=== PATIENT | female | born 1945 | race Hispanic/Latino ===

== ENCOUNTER 2018-03-18 13:53 | Inpatient (IN) | payer BC ==
[2018-03-18 14:17] VITALS: BMI 21.6
[2018-03-18 14:55] LABS: BASO # 0.1 K/uL (0.0-0.2); BASO % 0.7 % (0.0-2.0); EOS % 0.4 % (0.0-4.0); HEMOGLOBIN 15.4 g/dL (11.0-16.0); LYMPH # 2.9 K/uL (1.0-4.3); LYMPH % 33.1 % (20.0-40.0); MEAN CELL VOLUME 89.2 fL (81.0-99.0); MEAN CORPUSCULAR HGB CONC 33.7 g/dL (33.0-37.0); MEAN PLATELET VOLUME 7.3 fL (7.2-11.7); MONO # 1.2 K/uL (0.0-0.8); NEUT # 4.5 K/uL (1.8-7.0); NEUT % 51.8 % (50.0-75.0); NRBC % 0.1 % (0.0-2.0); RBC 5.12 Mil/uL (3.80-5.20); RED CELL DISTRIBUTION WIDTH 13.7 % (11.5-14.5); WHITE BLOOD COUNT 8.8 K/uL (4.8-10.8)
[2018-03-18] MEDS ORDERED: Albuterol-Ipratrop 3 mg / 0.5 (3 ml) UD INH STA (14:57)
[2018-03-18 15:10] LABS: ALB/GLOB RATIO 1.2 (1.0-2.1); ALBUMIN 4.4 g/dL (3.5-5.0); ALT/SGPT 29 U/L (9-52); AST/SGOT 27 U/L (14-36); BLOOD UREA NITROGEN 16 mg/dL (7-17); CALCIUM 9.3 mg/dl (8.6-10.4); GFR NON-AFRICAN AMERICAN > 60
[2018-03-18] MEDS ORDERED: Albuterol-Ipratrop 3 mg / 0.5 (3 ml) UD ONE (15:21)
[2018-03-18] MEDS ORDERED: Magnesium Sulfate 1 gm in D5W 1 GM/100 ML BAG IVPB ONE ×2 (15:21→16:28)
[2018-03-18 15:22] LABS: B-TYPE NATRIURETIC PEPTIDE 268 pg/mL (0-900)
[2018-03-18] MEDS: Magnesium Sulfate 1 gm in D5W 1 GM/100 ML BAG IVPB SCH ×2 (15:37→16:36)
[2018-03-18] MEDS ORDERED: Albuterol 0.083% Inhal Sol (2.5 mg/3 mL) UD INH STA (16:23)
[2018-03-18] MEDS ORDERED: Iodixanol 320 mg/ml 150 ml Bottle IV ONE (17:01)
--- NOTE | 2018-03-18 17:56 | RAD ---
Chest x-ray single frontal view History: Shortness of breath. Comparison: 03/17/2018 Findings: Biapical pleural thickening with upper lobe granulomatous changes. Scattered nodular densities in both lung rose. Nodular densities at the lung bases may represent nipple shadows. Diffuse increased interstitial lung markings. Mild bilateral hilar prominence Status post median sternotomy. Degenerative changes in the spine and shoulders. Impression: Biapical pleural thickening with upper lobe granulomatous changes. Scattered nodular densities in both lung rose. Nodular densities at the lung bases may represent nipple shadows. Diffuse increased interstitial lung markings. Mild bilateral hilar prominence Status post median sternotomy.
--- NOTE | 2018-03-18 19:57 | C.PDOC ---
History Of Present Illness 73 y/o female presents to ED c/o gradually worsening shortness of breath over the last 3 days. Pt has history of smoking in the past. She is currently taking antibiotics (day 2) for cough. She admits to dry cough. Otherwise, denies fever , chest pain, or other complaints. Chief Complaint (Nursing): Shortness Of Breath History Per: Patient History/Exam Limitations: no limitations Past Medical History Reviewed: Historical Data, Nursing Documentation, Vital Signs Vital Signs: Last Vital Signs Temp 97.6 F 03/18/18 14:28 Pulse 88 03/18/18 20:30 Resp 20 03/18/18 20:30 BP 121/61 03/18/18 20:30 Pulse Ox 93 L 03/18/18 20:42 - Medical History PMH: Asthma, Bronchitis, COPD, Emphysema, HTN, Pneumonia Surgical History: CABG Family History: States: Unknown Family Hx - Social History Hx Alcohol Use: No Hx Substance Use: No - Immunization History Hx Tetanus Toxoid Vaccination: No Hx Influenza Vaccination: No Hx Pneumococcal Vaccination: No Review Of Systems Except As Marked, All Systems Reviewed And Found Negative. Constitutional: Negative for: Fever, Chills Cardiovascular: Negative for: Chest Pain, Palpitations Respiratory: Positive for: Cough, Shortness of Breath Gastrointestinal: Negative for: Nausea, Vomiting, Abdominal Pain Physical Exam - Physical Exam Appears: Non-toxic, Other (In mild distress) Skin: Normal Color, Warm, Dry Head: Atraumatic, Normacephalic Eye(s): bilateral: Normal Inspection Oral Mucosa: Moist Neck: Supple Cardiovascular: Rhythm Regular (tachycardic) Respiratory: No Accessory Muscle Use, No Rales, No Rhonchi, Wheezing (expiratory ), Other (fair air entry) Gastrointestinal/Abdominal: Soft, No Tenderness Extremity: Normal ROM, No Pedal Edema Neurological/Psych: Oriented x3, Normal Speech ED Course And Treatment - Laboratory Results Result Diagrams: 03/18/18 14:52 03/18/18 14:52 ECG: Interpreted By Me, Viewed By Me ECG Rhythm: Sinus Rhythm Interpretation Of ECG: Normal axis. PVCs. Rate From EC (bpm) O2 Sat by Pulse Oximetry: 93 (RA) Pulse Ox Interpretation: Normal Medical Decision Making Medical Decision Making: Plan: Blood work CXR EKG Angio chest CT Albuterol Magnesium sulfate Solu-Medrol Case discussed with Dr. Hall who agrees upon Tele-Obs admission. Disposition - Disposition Disposition Time: 19:00 Condition: FAIR - Clinical Impression Clinical Impression: COPD exacerbation - Scribe Statement The provider has reviewed the documentation as recorded by the Scribe KP All medical record entries made by the Scribe were at my direction and personally dictated by me. I have reviewed the chart and agree that the record accurately reflects my personal performance of the history, physical exam, medical decision making, and the department course for this patient. I have also personally directed, reviewed, and agree with the discharge instructions and disposition.
--- NOTE | 2018-03-18 21:55 | CP.PCM.CON ---
Past Patient History - Past Social History Smoking Status: Current Some Days Smoker - CARDIAC Hx Hypertension: Yes - PULMONARY Hx Asthma: Yes Hx Bronchitis: Yes Hx Chronic Obstructive Pulmonary Disease (COPD): Yes Hx Emphysema: Yes Hx Pneumonia: Yes - PSYCHIATRIC Hx Substance Use: No - SURGICAL HISTORY Hx Coronary Artery Bypass Graft: Yes - ANESTHESIA Hx Anesthesia: Yes Hx Anesthesia Reactions: No Hx Malignant Hyperthermia: No Meds Allergies/Adverse Reactions: Allergies Allergy/AdvReac Type Severity Reaction Status Date / Time moxifloxacin [From Avelox] Allergy Verified 03/18/18 14:17 Penicillins Allergy Verified 03/18/18 14:17 - Medications Medications: Current Medications Albuterol/Ipratropium (Duoneb 3 Mg/0.5 Mg (3 Ml) Ud) 3 ml INH RQ6 [facility] Amlodipine Besylate (Norvasc) 5 mg PO DAILY [facility] Enoxaparin Sodium (Lovenox) 40 mg SC DAILY [facility] Azithromycin 500 mg/ Sodium (Chloride) 250 mls @ 250 mls/hr IVPB DAILY [facility] PRN Reason: Protocol Methylprednisolone (Solu-Medrol) 60 mg IVP Q8 [facility] Rosuvastatin Calcium (Crestor) 5 mg PO HS [facility] Results - Vital Signs Recent Vital Signs: Last Vital Signs Temp 97.6 F 03/18/18 14:28 Pulse 88 03/18/18 20:30 Resp 20 03/18/18 20:30 BP 121/61 03/18/18 20:30 Pulse Ox 93 L 03/18/18 21:22 - Labs Result Diagrams: 03/18/18 14:52 03/18/18 14:52 Labs: Laboratory Results - last 24 hr 03/18/18 03/18/18 14:52 14:52 WBC 8.8 RBC 5.12 Hgb 15.4 Hct 45.7 MCV 89.2 MCH 30.0 MCHC 33.7 RDW 13.7 Plt Count 249 MPV 7.3 Neut % (Auto) 51.8 Lymph % (Auto) 33.1 [place] % (Auto) 14.0 H Eos % (Auto) 0.4 Baso % (Auto) 0.7 Neut # (Auto) 4.5 Lymph # (Auto) 2.9 [place] # (Auto) 1.2 H Eos # (Auto) 0.0 Baso # (Auto) 0.1 Sodium 137 Potassium 4.2 Chloride 94 L Carbon Dioxide 32 H Anion Gap 16 BUN 16 Creatinine 0.6 L Est GFR ( Amer) > 60 Est GFR (Non-Af Amer) > 60 Random Glucose 131 H Calcium 9.3 Total Bilirubin 0.4 AST 27 ALT 29 Alkaline Phosphatase 112 Troponin I < 0.0120 NT-Pro-B Natriuret Pep 268 Total Protein 8.0 Albumin 4.4 Globulin 3.6 Albumin/Globulin Ratio 1.2
[2018-03-18 22:25] LABS: ABG ALLEN TEST POS; ARTERIAL BLOOD GAS HCO3 26.1 mmol/L (21-28); ARTERIAL BLOOD GAS HEMOGLOBIN 14.1 g/dL (11.7-17.4); ARTERIAL BLOOD GAS O2 SAT 99.9 % (95-98); ARTERIAL BLOOD GAS PCO2 66 mm/Hg (35-45); ARTERIAL BLOOD GAS PH 7.27 (7.35-7.45); ARTERIAL BLOOD GAS PO2 126 mm/Hg (80-100); ARTERIAL BLOOD GAS TCO2 32.3 mmol/L (22-28)
[2018-03-19 07:09] LABS: SQUAMOUS EPITHIAL 5 /hpf (0-5); URINE BACTERIA RARE (<OCC); URINE BILIRUBIN NEGATIVE (NEGATIVE); URINE BLOOD NEGATIVE (NEGATIVE); URINE CLARITY Clear (Clear); URINE COLOR Yellow (YELLOW); URINE GLUCOSE (UA) NORMAL (Normal); URINE LEUKOCYTE ESTERASE NEG Leu/uL (Negative); URINE PROTEIN NEGATIVE (NEGATIVE); URINE UROBILINOGEN NORMAL mg/dL (0.2-1.0)
[2018-03-19] MEDS ORDERED: MethylPREDNISolone 40 mg Vial ONE (07:16)
[2018-03-19] MEDS: Albuterol-Ipratrop 3 mg / 0.5 (3 ml) UD INH SCH ×2 (09:00→19:41)
[2018-03-19] MEDS: Azithromycin 500 MG in Sodium Chloride 0.9% 250 ML IVPB SCH (11:40)
[2018-03-19] MEDS: Enoxaparin 40 mg Syringe SC SCH (11:43)
--- NOTE | 2018-03-19 12:47 | CT ---
CT chest pulmonary angiogram History: Shortness of breath. Comparison: X-ray dated 03/18/2018 Technique: Axial computed tomographic angiographic images of the chest were performed with intravenous contrast utilizing CT angiography protocol. Subsequently, sagittal coronal reformatted images as well as sagittal coronal MIPS reformatted images were obtained. This CT exam was performed using one or more of the following dose reduction techniques: Automated exposure control, adjustment of the mA and/or kV according to patient size, and/or use of iterative reconstruction technique. Findings: No evidence of acute pulmonary embolism. Atherosclerotic calcifications of the aorta, great vessels, and coronary arteries. Emphysematous lungs with mild bullous changes in the upper and lower lobes. 6 millimeter spiculated nodule in the posterior segment of the right upper lobe of the lung on series 4, image 35. Mild consolidative changes seen within the anterior right lower lobe on series 4, image 69 near the fissure. No pleural effusion. Heart size is within normal limits. Mediastinal clips. Small hiatal hernia. Sternal wires. Mild compression fractures of the T7 through T9 vertebral bodies. In addition, at the T7-8 level, there is a prominent central spur causing severe spinal canal stenosis. At the T8-9 level, there is a large 11 millimeter right paracentral spur/ calcified disc obliterating the spinal canal and compressing on the spinal cord. This would be better evaluated with MRI if clinically indicated. Few splenic granulomas. Calcified abdominal aorta and its branches. Accessory left renal artery. Focal calcification in the left breast. Correlation with mammography may be helpful if clinically indicated. Multiple small hypodensities in the liver, too small to adequately characterize. Punctate splenic calcification. Splenule. Impression: No gross acute pulmonary embolism. Centrilobular emphysema. 6 millimeter spiculated nodule in the right upper lobe of the lung. 3-6 month interval followup would be helpful for further evaluation if clinically indicated. At the T8-9 level, there is a 11 millimeter large right paracentral spur/calcified disc obliterating the spinal canal and compressing on the spinal cord. Correlation with MRI may be helpful if clinically indicated. These findings were preliminarily reported at 6:24 p.m. on 03/18/[address] Bk Guzman from [facility].
--- NOTE | 2018-03-19 12:48 | CP.PCM.HP ---
History of Present Illness - History of Present Illness History of Present Illness: 73 y/o lady with hx of cigarettes smoking, CAD, S/P GABG x 4, HTN, severe COPD. She presented in ER with progressive dyspnea, cough, general weakness, severe tachypnea. She was seen in my office few days before admission and she did not improve on the bronchodilator and anti bx meds. At the present time poorly respond to steroid rx iv. Still in mild distress, dyspnea, severe dyspnea on minimal exertion. Patent with respiratory acidosis. A CT scan reveled a suspicious 6 mm nodule. Patient still heavy smoker. Present on Admission - Present on Admission Any Indicators Present on Admission: No Review of Systems - Constitutional Constitutional: As Per HPI - EENT Eyes: As Per HPI - Cardiovascular Cardiovascular: Dyspnea, Dyspnea on Exertion, Palpitations - Respiratory Respiratory: Dyspnea, Dyspnea on Exertion, Wheezing - Gastrointestinal Gastrointestinal: As Per HPI - Musculoskeletal Musculoskeletal: As Per HPI - Neurological Neurological: As Per HPI - Psychiatric Psychiatric: As Per HPI - Endocrine Endocrine: As Per HPI Past Patient History - Past Social History Smoking Status: Current Some Days Smoker - CARDIAC Hx Hypertension: Yes - PULMONARY Hx Asthma: Yes Hx Bronchitis: Yes Hx Chronic Obstructive Pulmonary Disease (COPD): Yes Hx Emphysema: Yes Hx Pneumonia: Yes - PSYCHIATRIC Hx Substance Use: No - SURGICAL HISTORY Hx Coronary Artery Bypass Graft: Yes - ANESTHESIA Hx Anesthesia: Yes Hx Anesthesia Reactions: No Hx Malignant Hyperthermia: No Meds Allergies/Adverse Reactions: Allergies Allergy/AdvReac Type Severity Reaction Status Date / Time moxifloxacin [From Avelox] Allergy Verified 03/18/18 14:17 Penicillins Allergy Verified 03/18/18 14:17 Physical Exam - Constitutional Appears: In Acute Distress, Chronically Ill - Head Exam Head Exam: ATRAUMATIC, NORMAL INSPECTION, NORMOCEPHALIC - Eye Exam Eye Exam: Normal appearance - ENT Exam ENT Exam: Mucous Membranes Moist - Respiratory Exam Respiratory Exam: Decreased Breath Sounds Additional comments: poor inspiratory effort. - Cardiovascular Exam Cardiovascular Exam: REGULAR RHYTHM, +S1, +S2 - GI/Abdominal Exam GI & Abdominal Exam: Normal Bowel Sounds - Extremities Exam Extremities exam: Positive for: normal inspection - Neurological Exam Neurological exam: Alert, CN II-XII Intact, Oriented x3 - Psychiatric Exam Psychiatric exam: Normal Affect - Skin Skin Exam: Pallor Results - Vital Signs Recent Vital Signs: Last Vital Signs Temp 98.1 F 03/19/18 10:02 Pulse 87 03/19/18 10:02 Resp 20 03/19/18 10:02 BP 112/67 03/19/18 10:02 Pulse Ox 96 03/19/18 10:02 - Labs Result Diagrams: 03/18/18 14:52 03/18/18 14:52 Labs: Laboratory Results - last 24 hr 03/18/18 03/18/18 03/18/18 14:52 14:52 22:20 WBC 8.8 RBC 5.12 Hgb 15.4 Hct 45.7 MCV 89.2 MCH 30.0 MCHC 33.7 RDW 13.7 Plt Count 249 MPV 7.3 Neut % (Auto) 51.8 Lymph % (Auto) 33.1 [place] % (Auto) 14.0 H Eos % (Auto) 0.4 Baso % (Auto) 0.7 Neut # (Auto) 4.5 Lymph # (Auto) 2.9 [place] # (Auto) 1.2 H Eos # (Auto) 0.0 Baso # (Auto) 0.1 Puncture Site Rr pCO2 66 H pO2 126 H HCO3 26.1 ABG pH 7.27 L ABG Total CO2 32.3 H ABG O2 Saturation 99.9 H ABG Base Excess 1.5 ABG Hemoglobin 14.1 ABG Carboxyhemoglobin 1.9 H POC ABG HHb (Measured) 0.1 ABG Methemoglobin 1.3 [place] Test Pos Hgb O2 Saturation 96.7 Liter Flow 3.0 Sodium 137 Potassium 4.2 Chloride 94 L Carbon Dioxide 32 H Anion Gap 16 BUN 16 Creatinine 0.6 L Est GFR ( Amer) > 60 Est GFR (Non-Af Amer) > 60 Random Glucose 131 H Calcium 9.3 Total Bilirubin 0.4 AST 27 ALT 29 Alkaline Phosphatase 112 Troponin I < 0.0120 NT-Pro-B Natriuret Pep 268 Total Protein 8.0 Albumin 4.4 Globulin 3.6 Albumin/Globulin Ratio 1.2 Urine Color Urine Clarity Urine pH Ur Specific [place] Urine Protein Urine Glucose (UA) Urine Ketones Urine Blood Urine Nitrate Urine Bilirubin Urine Urobilinogen Ur Leukocyte Esterase Urine WBC (Auto) Urine RBC (Auto) Ur Squamous Epith Cells Urine Bacteria 03/19/18 07:04 WBC RBC Hgb Hct MCV MCH MCHC RDW Plt Count MPV Neut % (Auto) Lymph % (Auto) [place] % (Auto) Eos % (Auto) Baso % (Auto) Neut # (Auto) Lymph # (Auto) [place] # (Auto) Eos # (Auto) Baso # (Auto) Puncture Site pCO2 pO2 HCO3 ABG pH ABG Total CO2 ABG O2 Saturation ABG Base Excess ABG Hemoglobin ABG Carboxyhemoglobin POC ABG HHb (Measured) ABG Methemoglobin [place] Test Hgb O2 Saturation Liter Flow Sodium Potassium Chloride Carbon Dioxide Anion Gap BUN Creatinine Est GFR ( Amer) Est GFR (Non-Af Amer) Random Glucose Calcium Total Bilirubin AST ALT Alkaline Phosphatase Troponin I NT-Pro-B Natriuret Pep Total Protein Albumin Globulin Albumin/Globulin Ratio Urine Color Yellow Urine Clarity Clear Urine pH 6.0 Ur Specific [place] 1.039 H Urine Protein Negative Urine Glucose (UA) Normal Urine Ketones Negative Urine Blood Negative Urine Nitrate Negative Urine Bilirubin Negative Urine Urobilinogen Normal Ur Leukocyte Esterase Neg Urine WBC (Auto) < 1 Urine RBC (Auto) 1 Ur Squamous Epith Cells 5 Urine Bacteria Rare Assessment & Plan (1) Bronchitis Status: Acute (2) Hypertensive cardiovascular disease Status: Chronic (3) Coronary arteriosclerosis Status: Chronic (4) Tachypnea Status: Acute (5) Respiratory acidosis Status: Acute (6) Pulmonary artery hypertension Status: Suspected (7) COPD exacerbation Status: Acute (8) Emphysema lung Status: Chronic - Assessment and Plan (Free Text) Plan: As per orders.
[2018-03-19 14:04] LABS: BASO % 0.1 % (0.0-2.0); HEMOGLOBIN 14.9 g/dL (11.0-16.0); LYMPH # 1.9 K/uL (1.0-4.3); LYMPH % 12.6 % (20.0-40.0); MEAN CELL VOLUME 90.4 fL (81.0-99.0); MEAN CORPUSCULAR HEMOGLOBIN 30.3 pg (27.0-31.0); MEAN CORPUSCULAR HGB CONC 33.5 g/dL (33.0-37.0); MEAN PLATELET VOLUME 7.4 fL (7.2-11.7); MONO # 0.4 K/uL (0.0-0.8); MONO % 2.8 % (0.0-10.0); NEUT # 12.6 K/uL (1.8-7.0); NEUT % 84.5 % (50.0-75.0); RBC 4.92 Mil/uL (3.80-5.20); RED CELL DISTRIBUTION WIDTH 13.6 % (11.5-14.5); WHITE BLOOD COUNT 14.9 K/uL (4.8-10.8)
[2018-03-19 14:31] LABS: BLOOD UREA NITROGEN 19 mg/dL (7-17); CALCIUM 9.3 mg/dl (8.6-10.4); GFR NON-AFRICAN AMERICAN > 60
[2018-03-19 14:43] LABS: B-TYPE NATRIURETIC PEPTIDE 332 pg/mL (0-900)
[2018-03-19 17:54] LABS: T3 1.06 nmol/L (1.49-2.60)
[2018-03-19 17:56] LABS: T4 8.05 ug/dL (5.5-11.0)
--- NOTE | 2018-03-19 20:16 | CP.PCM.PN ---
Subjective - Date & Time of Evaluation Date of Evaluation: 03/19/18 Time of Evaluation: 20:15 - Subjective Subjective: Pulmonary follow up, Covering Dr Riley The patient was Seen/interviewed and examined by me at the bedside, Medical records reviewed and Management issues were discussed and formulated with the house staff. Events reviewed Clinically and Respiratory status slowly improving Alert, Awake, AAO x3. Less SOB, Comfortable, but severe dyspnea on minimal exertion. Breathing unlabored, on 2L NC O2 sat 94%. Denies any chest pain, Fever/chills or Palpitations Afebrile Objective - Vital Signs/Intake and Output Vital Signs (last 24 hours): Temp Pulse Resp BP Pulse Ox 98.1 F 86 20 123/70 94 L 03/19/18 15:15 03/19/18 16:00 03/19/18 15:15 03/19/18 15:15 03/19/18 15:15 - Medications Medications: Current Medications Albuterol/Ipratropium (Duoneb 3 Mg/0.5 Mg (3 Ml) Ud) 3 ml INH RQ6 [facility] Last Admin: 03/19/18 19:41 Dose: 3 ml Amlodipine Besylate (Norvasc) 5 mg PO DAILY [facility] Last Admin: 03/19/18 11:39 Dose: 5 mg Enoxaparin Sodium (Lovenox) 40 mg SC DAILY [facility] Last Admin: 03/19/18 11:43 Dose: Not Given Azithromycin 500 mg/ Sodium (Chloride) 250 mls @ 250 mls/hr IVPB DAILY [facility] PRN Reason: Protocol Last Admin: 03/19/18 11:40 Dose: 250 mls/hr Methylprednisolone (Solu-Medrol) 80 mg IVP Q8 [facility] Last Admin: 03/19/18 14:35 Dose: 80 mg Rosuvastatin Calcium (Crestor) 5 mg PO HS [facility] Last Admin: 03/18/18 22:13 Dose: 5 mg - Labs Labs: 03/19/18 13:55 03/19/18 13:55 - Head Exam Head Exam: ATRAUMATIC, NORMAL INSPECTION - ENT Exam ENT Exam: Mucous Membranes Dry - Neck Exam Neck Exam: Full ROM, Normal Inspection - Respiratory Exam Respiratory Exam: Prolonged Expiratory Phase, Wheezes. absent: Accessory Muscle Use, Chest Wall Tenderness, Clear to Ausculation Bilateral, Rales, Rhonchi - Cardiovascular Exam Cardiovascular Exam: REGULAR RHYTHM, RRR, +S1, +S2. absent: JVD - Extremities Exam Extremities Exam: Full ROM, Normal Capillary Refill, Normal Inspection. absent : Calf Tenderness, Joint Swelling, Pedal Edema, Tenderness - Neurological Exam Neurological Exam: Alert, Awake, CN II-XII Intact, Motor Sensory Deficit, Oriented x3. absent: Altered Assessment and Plan (1) COPD exacerbation Assessment & Plan: Continue current managements Continue Albuterol/Ipratropium INH RQ6 [facility] Continue Solu-Medrol 60 mg IVP Q8 [facility] Azithromycin, switch to PO x 5 days Start Guaifenesin 600mg MARLINE Consuder Tiotropium DVT PPX with Lovenox 40 mg SC DAILY Status: Acute (2) Multiple lung nodules Assessment & Plan: Repeat Chest CT scan in 3-6 month Status: Acute (3) Bronchitis Status: Acute (4) Respiratory acidosis Status: Acute (5) Tachypnea Status: Acute (6) Emphysema lung Status: Chronic (7) Hypertensive cardiovascular disease Status: Chronic (8) Pulmonary artery hypertension Status: Suspected
[2018-03-20] MEDS: Albuterol-Ipratrop 3 mg / 0.5 (3 ml) UD INH SCH ×4 (01:43→19:11)
[2018-03-20 08:55] LABS: BASO % 0.1 % (0.0-2.0); HEMOGLOBIN 14.2 g/dL (11.0-16.0); LYMPH # 1.6 K/uL (1.0-4.3); LYMPH % 6.8 % (20.0-40.0); MEAN CELL VOLUME 90.7 fL (81.0-99.0); MEAN CORPUSCULAR HEMOGLOBIN 29.7 pg (27.0-31.0); MEAN CORPUSCULAR HGB CONC 32.8 g/dL (33.0-37.0); MEAN PLATELET VOLUME 7.7 fL (7.2-11.7); MONO # 0.7 K/uL (0.0-0.8); MONO % 2.9 % (0.0-10.0); NEUT # 21.6 K/uL (1.8-7.0); NEUT % 90.2 % (50.0-75.0); NRBC % 0.1 % (0.0-2.0); PLATELET COUNT 262 K/uL (130-400); RBC 4.77 Mil/uL (3.80-5.20); RED CELL DISTRIBUTION WIDTH 13.6 % (11.5-14.5)
[2018-03-20 09:11] LABS: BLOOD UREA NITROGEN 22 mg/dL (7-17); GFR NON-AFRICAN AMERICAN > 60
[2018-03-20 09:30] LABS: MONOCYTE 2 % (0-10); NEUTROPHIL 89 % (50-75); TOTAL CELLS COUNTED 100
[2018-03-20 09:31] LABS: LYMPHOCYTE 8 % (20-40); PLATELET ESTIMATE NORMAL (NORMAL)
--- NOTE | 2018-03-20 09:48 | CP.PCM.CON ---
History of Present Illness - History of Present Illness History of Present Illness: The pt is a 73 year old woman who smokes, has COPD and CAD. CABG 2003. An echo performed in the office last year demonstrated normal LV EF. the pt now has cough, dyspnea, and is being treated for COPD exacerbation. She denies chest pain. Review of Systems - Review of Systems All systems: reviewed and no additional remarkable complaints except (as above.) Past Patient History - Past Social History Smoking Status: Current Some Days Smoker - CARDIAC Hx Hypertension: Yes - PULMONARY Hx Asthma: Yes Hx Bronchitis: Yes Hx Chronic Obstructive Pulmonary Disease (COPD): Yes Hx Emphysema: Yes Hx Pneumonia: Yes - PSYCHIATRIC Hx Substance Use: No - SURGICAL HISTORY Hx Coronary Artery Bypass Graft: Yes - ANESTHESIA Hx Anesthesia: Yes Hx Anesthesia Reactions: No Hx Malignant Hyperthermia: No Meds Allergies/Adverse Reactions: Allergies Allergy/AdvReac Type Severity Reaction Status Date / Time moxifloxacin [From Avelox] Allergy Verified 03/18/18 14:17 Penicillins Allergy Verified 03/18/18 14:17 - Medications Medications: Current Medications Albuterol/Ipratropium (Duoneb 3 Mg/0.5 Mg (3 Ml) Ud) 3 ml INH RQ6 [facility] Last Admin: 03/20/18 09:11 Dose: 3 ml Amlodipine Besylate (Norvasc) 5 mg PO DAILY [facility] Last Admin: 03/19/18 11:39 Dose: 5 mg Enoxaparin Sodium (Lovenox) 40 mg SC DAILY [facility] Last Admin: 03/19/18 11:43 Dose: Not Given Guaifenesin (Mucinex [place]) 600 mg PO BID [facility] Azithromycin 500 mg/ Sodium (Chloride) 250 mls @ 250 mls/hr IVPB DAILY [facility] PRN Reason: Protocol Last Admin: 03/19/18 11:40 Dose: 250 mls/hr Methylprednisolone (Solu-Medrol) 80 mg IVP Q8 [facility] Last Admin: 03/20/18 05:49 Dose: 80 mg Rosuvastatin Calcium (Crestor) 5 mg PO HS [facility] Last Admin: 03/19/18 21:50 Dose: 5 mg Physical Exam - Constitutional Appears: Other (coughing, mild to moderate dyspnea) - Head Exam Head Exam: ATRAUMATIC - Eye Exam Eye Exam: EOMI Pupil Exam: NORMAL ACCOMODATION - ENT Exam ENT Exam: Mucous Membranes Moist - Respiratory Exam Respiratory Exam: Prolonged Expiratory Phase - Cardiovascular Exam Cardiovascular Exam: REGULAR RHYTHM - GI/Abdominal Exam GI & Abdominal Exam: Normal Bowel Sounds - Rectal Exam Rectal Exam: NORMAL INSPECTION - Exam External exam: NORMAL EXTERNAL EXAM - Back Exam Back exam: NORMAL INSPECTION - Neurological Exam Neurological exam: CN II-XII Intact, Oriented x3, Reflexes Normal - Psychiatric Exam Psychiatric exam: Normal Affect - Skin Skin Exam: Dry, Normal Color Results - Vital Signs Recent Vital Signs: Last Vital Signs Temp 98.0 F 03/20/18 07:02 Pulse 87 03/20/18 07:02 Resp 18 03/20/18 07:02 BP 115/71 03/20/18 07:02 Pulse Ox 96 03/20/18 07:02 - Labs Result Diagrams: 03/20/18 08:46 03/20/18 08:46 Labs: Laboratory Results - last 24 hr 03/19/18 03/19/18 03/19/18 13:55 13:55 14:03 WBC 14.9 H D RBC 4.92 Hgb 14.9 Hct 44.5 MCV 90.4 MCH 30.3 MCHC 33.5 RDW 13.6 Plt Count 271 MPV 7.4 Neut % (Auto) 84.5 H Lymph % (Auto) 12.6 L [place] % (Auto) 2.8 Eos % (Auto) 0.0 Baso % (Auto) 0.1 Neut # (Auto) 12.6 H Lymph # (Auto) 1.9 [place] # (Auto) 0.4 Eos # (Auto) 0.0 Baso # (Auto) 0.0 Neutrophils % (Manual) Lymphocytes % (Manual) Monocytes % (Manual) Platelet Estimate Sodium 136 Potassium 4.8 Chloride 94 L Carbon Dioxide 31 H Anion Gap 16 BUN 19 H Creatinine 0.7 Est GFR ( Amer) > 60 Est GFR (Non-Af Amer) > 60 Random Glucose 279 H Lactic Acid 2.4 H Calcium 9.3 Troponin I < 0.0120 NT-Pro-B Natriuret Pep 332 Thyroxine (T4) Total T3 TSH 3rd Generation 0.30 L 03/19/18 03/20/18 03/20/18 17:05 08:46 08:46 WBC 24.0 H D RBC 4.77 Hgb 14.2 Hct 43.2 MCV 90.7 MCH 29.7 MCHC 32.8 L RDW 13.6 Plt Count 262 MPV 7.7 Neut % (Auto) 90.2 H Lymph % (Auto) 6.8 L [place] % (Auto) 2.9 Eos % (Auto) 0.0 Baso % (Auto) 0.1 Neut # (Auto) 21.6 H Lymph # (Auto) 1.6 [place] # (Auto) 0.7 Eos # (Auto) 0.0 Baso # (Auto) 0.0 Neutrophils % (Manual) 89 H Lymphocytes % (Manual) 8 L Monocytes % (Manual) 2 Platelet Estimate Normal Sodium 139 Potassium 4.9 Chloride 98 Carbon Dioxide 34 H Anion Gap 11 BUN 22 H Creatinine 0.6 L Est GFR ( Amer) > 60 Est GFR (Non-Af Amer) > 60 Random Glucose 162 H Lactic Acid Calcium 9.0 Troponin I NT-Pro-B Natriuret Pep Thyroxine (T4) 8.05 Total T3 1.06 L TSH 3rd Generation 03/20/18 08:46 WBC RBC Hgb Hct MCV MCH MCHC RDW Plt Count MPV Neut % (Auto) Lymph % (Auto) [place] % (Auto) Eos % (Auto) Baso % (Auto) Neut # (Auto) Lymph # (Auto) [place] # (Auto) Eos # (Auto) Baso # (Auto) Neutrophils % (Manual) Lymphocytes % (Manual) Monocytes % (Manual) Platelet Estimate Sodium Potassium Chloride Carbon Dioxide Anion Gap BUN Creatinine Est GFR ( Amer) Est GFR (Non-Af Amer) Random Glucose Lactic Acid 1.3 Calcium Troponin I NT-Pro-B Natriuret Pep Thyroxine (T4) Total T3 TSH 3rd Generation - EKG Data EKG shows normal: Sinus rhythm (AFB apb, no ischemic changes) Assessment & Plan - Assessment and Plan (Free Text) Assessment: 1. 73 year old woman with COPD exacerbation. No chest pain, and normal tni, no st changes. pt will be treated for COPD. Add asa 81. Pt also takes a statin, and norvasc for HTN. Will follow BP.
[2018-03-20] MEDS: guaiFENesin 600 mg ER Tab PO SCH ×2 (09:50→17:44)
[2018-03-20] MEDS: Azithromycin 500 MG in Sodium Chloride 0.9% 250 ML IVPB SCH (09:51)
[2018-03-20] MEDS: Enoxaparin 40 mg Syringe SC SCH (09:52)
[2018-03-20 10:07] LABS: ABG ALLEN TEST PO; ARTERIAL BLOOD GAS HCO3 29.8 mmol/L (21-28); ARTERIAL BLOOD GAS HEMOGLOBIN 14.1 g/dL (11.7-17.4); ARTERIAL BLOOD GAS O2 SAT 94.4 % (95-98); ARTERIAL BLOOD GAS PCO2 62 mm/Hg (35-45); ARTERIAL BLOOD GAS PH 7.35 (7.35-7.45); ARTERIAL BLOOD GAS PO2 59 mm/Hg (80-100); ARTERIAL BLOOD GAS TCO2 36.1 mmol/L (22-28)
--- NOTE | 2018-03-20 13:44 | CP.PCM.PN ---
Subjective - Date & Time of Evaluation Date of Evaluation: 03/20/18 Time of Evaluation: 09:00 - Subjective Subjective: patient seen and examined Still having difficulty breathing Unable to bring up phlegm Afebrile ABG improving with less hypercapnia Objective - Vital Signs/Intake and Output Vital Signs (last 24 hours): Temp Pulse Resp BP Pulse Ox 98.0 F 84 18 115/71 96 03/20/18 07:02 03/20/18 10:59 03/20/18 07:02 03/20/18 07:02 03/20/18 07:02 - Medications Medications: Current Medications Albuterol/Ipratropium (Duoneb 3 Mg/0.5 Mg (3 Ml) Ud) 3 ml INH RQ6 [facility] Last Admin: 03/20/18 09:11 Dose: 3 ml Amlodipine Besylate (Norvasc) 5 mg PO DAILY [facility] Last Admin: 03/20/18 09:50 Dose: 5 mg Aspirin (Ecotrin) 81 mg PO DAILY [facility] Last Admin: 03/20/18 10:02 Dose: 81 mg Enoxaparin Sodium (Lovenox) 40 mg SC DAILY [facility] Last Admin: 03/20/18 09:52 Dose: 40 mg Guaifenesin (Mucinex La) 600 mg PO BID [facility] Last Admin: 03/20/18 09:50 Dose: 600 mg Azithromycin 500 mg/ Sodium (Chloride) 250 mls @ 250 mls/hr IVPB DAILY [facility] PRN Reason: Protocol Last Admin: 03/20/18 09:51 Dose: 250 mls/hr Methylprednisolone (Solu-Medrol) 60 mg IVP Q6H [facility] Rosuvastatin Calcium (Crestor) 5 mg PO HS [facility] Last Admin: 03/19/18 21:50 Dose: 5 mg - Labs Labs: 03/20/18 08:46 03/20/18 08:46 - Head Exam Head Exam: ATRAUMATIC, NORMOCEPHALIC - ENT Exam ENT Exam: Mucous Membranes Moist - Neck Exam Neck Exam: Normal Inspection - Respiratory Exam Respiratory Exam: Rhonchi, Wheezes - Cardiovascular Exam Cardiovascular Exam: REGULAR RHYTHM - GI/Abdominal Exam GI & Abdominal Exam: Soft, Normal Bowel Sounds - Extremities Exam Extremities Exam: Normal Inspection - Neurological Exam Neurological Exam: Alert Assessment and Plan (1) COPD exacerbation Assessment & Plan: Continue nebulizer treatment Continue IV steroids BiPAP add spiriva Continue azithromycin Status: Acute (2) Multiple lung nodules Status: Acute
[2018-03-20] MEDS: MethylPREDNISolone 40 mg Vial IVP SCH (17:44)
--- NOTE | 2018-03-20 20:14 | CP.PCM.PN ---
Subjective - Date & Time of Evaluation Date of Evaluation: 03/20/18 Time of Evaluation: 20:15 - Subjective Subjective: Patient poorly respond to rx. Sill severally symptomatic, hypoxic as per ABG. Poor inspirator effort. Objective - Vital Signs/Intake and Output Vital Signs (last 24 hours): Temp Pulse Resp BP Pulse Ox 98.0 F 84 20 125/73 92 L 03/20/18 16:00 03/20/18 16:00 03/20/18 16:00 03/20/18 16:00 03/20/18 16:00 Intake and Output: 03/20/18 03/20/18 11:59 23:59 Intake Total 480 Balance 480 - Medications Medications: Current Medications Albuterol/Ipratropium (Duoneb 3 Mg/0.5 Mg (3 Ml) Ud) 3 ml INH RQ6 [facility] Last Admin: 03/20/18 19:11 Dose: 3 ml Amlodipine Besylate (Norvasc) 5 mg PO DAILY [facility] Last Admin: 03/20/18 09:50 Dose: 5 mg Aspirin (Ecotrin) 81 mg PO DAILY [facility] Last Admin: 03/20/18 10:02 Dose: 81 mg Enoxaparin Sodium (Lovenox) 40 mg SC DAILY [facility] Last Admin: 03/20/18 09:52 Dose: 40 mg Guaifenesin (Mucinex La) 600 mg PO BID [facility] Last Admin: 03/20/18 17:44 Dose: 600 mg Azithromycin 500 mg/ Sodium (Chloride) 250 mls @ 250 mls/hr IVPB DAILY [facility] PRN Reason: Protocol Last Admin: 03/20/18 09:51 Dose: 250 mls/hr Methylprednisolone (Solu-Medrol) 60 mg IVP Q6H [facility] Last Admin: 03/20/18 17:44 Dose: 60 mg Rosuvastatin Calcium (Crestor) 5 mg PO HS [facility] Last Admin: 03/19/18 21:50 Dose: 5 mg Tiotropium [place] (Spiriva) 18 mcg INH RQ24 [facility] - Labs Labs: 03/20/18 08:46 03/20/18 08:46 - Constitutional Appears: In Acute Distress, Chronically Ill - Head Exam Head Exam: ATRAUMATIC, NORMAL INSPECTION, NORMOCEPHALIC - Eye Exam Eye Exam: Normal appearance - ENT Exam ENT Exam: Mucous Membranes Dry - Respiratory Exam Respiratory Exam: Decreased Breath Sounds - Cardiovascular Exam Cardiovascular Exam: REGULAR RHYTHM, +S1, +S2 - GI/Abdominal Exam GI & Abdominal Exam: Normal Bowel Sounds - Extremities Exam Extremities Exam: Full ROM - Neurological Exam Neurological Exam: Alert, Awake, CN II-XII Intact, Oriented x3 - Psychiatric Exam Psychiatric exam: Anxious - Skin Skin Exam: Pallor Assessment and Plan (1) Bronchitis Status: Acute (2) Hypertensive cardiovascular disease Status: Chronic (3) Coronary arteriosclerosis Status: Chronic (4) Tachypnea Status: Acute (5) Respiratory acidosis Status: Acute (6) Pulmonary artery hypertension Status: Suspected (7) COPD exacerbation Status: Acute (8) Emphysema lung Status: Chronic - Assessment and Plan (Free Text) Plan: Continue present rx. Will follow pulmonary consult.
[2018-03-20] MEDS: (Novolin R) Insulin Human Regular 100 units/ml vial SC SCH (21:20)
--- NOTE | 2018-03-20 22:29 | CARD ---
APPROVED REPORT Date of service: 03/20/2018 EXAM: Two-dimensional and M-mode echocardiogram with Doppler and color Doppler. Other Information Quality : TDSRhythm : INDICATION Dyspnea Cardiac Disease: CAD COPD Surgery/Intervention CABD DIMENSIONS IVSd1.0 (0.7-1.1cm)LVDd3.7 (3.9-5.9cm) PWd0.9 (0.7-1.1cm)LVDs2.6 (2.5-4.0cm) FS (%) 30.4 %LVEF (%)65.0 (>50%) LVEF (Chowdhury's)75 % M-Mode DIMENSIONS Left Atrium (MM)3.03 (2.5-4.0cm)Aortic Root2.73 (2.2-3.7cm) Aortic Cusp Exc.1.91 (1.5-2.0cm) Mitral Valve MV E Mlmkymvs13.8cm/sMV A Xqtejudy59.8cm/sE/A ratio0.9 TDI E/Lateral E'0.0E/Medial E'0.0 <Conclusion> Suboptimal study Left ventricle: thickness: normal; size: normal; overall ejection fraction: 65%: diastolic filling pressures: normal Mitral valve: annulus:MAC: leaflets: normal: excursion: normal; no significant trans-mitral gradient: no significant incompetence: left atrium: normal Aortic valve: leaflets: thickened calcifiedl: excursion: normal; no significant trans-aortic gradient: No significant incompetence: aortic root: normal Right sided Structures: Pulmonary valve: normal; no significant incompetence; Tricuspid valve: normal; no significant incompetence: Intra-cardiac hemodynamics: pulmonary systolic pressures: normal; central venous pressures: normal No pericardial effusion
[2018-03-21] MEDS: MethylPREDNISolone 40 mg Vial IVP SCH ×4 (00:50→18:05)
[2018-03-21] MEDS: Albuterol-Ipratrop 3 mg / 0.5 (3 ml) UD INH SCH ×4 (01:45→19:42)
[2018-03-21 08:37] LABS: BASO % 0.2 % (0.0-2.0); HEMOGLOBIN 13.6 g/dL (11.0-16.0); LYMPH # 1.1 K/uL (1.0-4.3); MEAN CELL VOLUME 91.2 fL (81.0-99.0); MEAN CORPUSCULAR HEMOGLOBIN 30.2 pg (27.0-31.0); MEAN CORPUSCULAR HGB CONC 33.1 g/dL (33.0-37.0); MEAN PLATELET VOLUME 7.4 fL (7.2-11.7); MONO # 0.3 K/uL (0.0-0.8); MONO % 1.8 % (0.0-10.0); NEUT # 17.4 K/uL (1.8-7.0); PLATELET COUNT 265 K/uL (130-400); RBC 4.52 Mil/uL (3.80-5.20); WHITE BLOOD COUNT 18.9 K/uL (4.8-10.8)
[2018-03-21 08:50] LABS: BLOOD UREA NITROGEN 19 mg/dL (7-17); CALCIUM 9.1 mg/dl (8.6-10.4); GFR NON-AFRICAN AMERICAN > 60
[2018-03-21] MEDS: (Novolin R) Insulin Human Regular 100 units/ml vial SC SCH ×4 (09:16→21:54)
[2018-03-21] MEDS: Enoxaparin 40 mg Syringe SC SCH (09:17)
[2018-03-21] MEDS: guaiFENesin 600 mg ER Tab PO SCH ×2 (09:17→18:05)
[2018-03-21 09:28] LABS: LYMPHOCYTE 10 % (20-40); MONOCYTE 2 % (0-10); NEUTROPHIL 88 % (50-75); PLATELET ESTIMATE NORMAL (NORMAL); TOTAL CELLS COUNTED 100
[2018-03-21] MEDS: Azithromycin 500 MG in Sodium Chloride 0.9% 250 ML IVPB SCH (10:44)
--- NOTE | 2018-03-21 14:37 | CP.PCM.PN ---
Subjective - Date & Time of Evaluation Date of Evaluation: 03/21/18 Time of Evaluation: 12:40 - Subjective Subjective: still complaining of shortness of breath Also complaining of cough and unable to bring up phlegm Afebrile No chest pain Continue IV steroids Start Mucomyst CAT scan of the chest showed no pulmonary embolism, bullous disease and spiculated nodule 6 mm Objective - Vital Signs/Intake and Output Vital Signs (last 24 hours): Temp Pulse Resp BP Pulse Ox 97.9 F 91 H 20 122/61 92 L 03/21/18 07:12 03/21/18 07:12 03/21/18 07:12 03/21/18 07:12 03/21/18 07:12 - Medications Medications: Current Medications Albuterol/Ipratropium (Duoneb 3 Mg/0.5 Mg (3 Ml) Ud) 3 ml INH RQ6 [facility] Last Admin: 03/21/18 13:56 Dose: 3 ml Amlodipine Besylate (Norvasc) 5 mg PO DAILY [facility] Last Admin: 03/21/18 09:16 Dose: 5 mg Aspirin (Ecotrin) 81 mg PO DAILY [facility] Last Admin: 03/21/18 09:17 Dose: 81 mg Enoxaparin Sodium (Lovenox) 40 mg SC DAILY [facility] Last Admin: 03/21/18 09:17 Dose: 40 mg Guaifenesin (Mucinex La) 600 mg PO BID [facility] Last Admin: 03/21/18 09:17 Dose: 600 mg Azithromycin 500 mg/ Sodium (Chloride) 250 mls @ 250 mls/hr IVPB DAILY [facility] PRN Reason: Protocol Last Admin: 03/21/18 10:44 Dose: 250 mls/hr Insulin Human Regular (Novolin R) 0 unit SC ACHS [facility] PRN Reason: Protocol Last Admin: 03/21/18 12:30 Dose: 3 units Methylprednisolone (Solu-Medrol) 60 mg IVP Q6H [facility] Last Admin: 03/21/18 12:58 Dose: 60 mg Rosuvastatin Calcium (Crestor) 5 mg PO HS [facility] Last Admin: 03/20/18 21:15 Dose: 5 mg Tiotropium [place] (Spiriva) 18 mcg INH RQ24 [facility] - Labs Labs: 03/21/18 08:29 03/21/18 08:29 Assessment and Plan (1) COPD exacerbation Status: Acute (2) Multiple lung nodules Status: Acute
--- NOTE | 2018-03-21 16:51 | CARD ---
APPROVED REPORT Date of service: 03/18/2018 EKG Measurement Heart [id number] <Conclusion> Sinus rhythm with premature supraventricular complexes Left axis deviation Abnormal ECG
--- NOTE | 2018-03-21 21:36 | CP.PCM.PN ---
Subjective - Date & Time of Evaluation Date of Evaluation: 03/21/18 Time of Evaluation: 21:36 - Subjective Subjective: Still very symptomatic with severe SOB. Objective - Vital Signs/Intake and Output Vital Signs (last 24 hours): Temp Pulse Resp BP Pulse Ox 99.7 F H 89 20 120/71 97 03/21/18 20:58 03/21/18 20:58 03/21/18 20:58 03/21/18 20:58 03/21/18 20:58 Intake and Output: 03/21/18 03/21/18 11:59 23:59 Intake Total 1050 Balance 1050 - Medications Medications: Current Medications Albuterol/Ipratropium (Duoneb 3 Mg/0.5 Mg (3 Ml) Ud) 3 ml INH RQ6 [facility] Last Admin: 03/21/18 19:42 Dose: 3 ml Amlodipine Besylate (Norvasc) 5 mg PO DAILY [facility] Last Admin: 03/21/18 09:16 Dose: 5 mg Aspirin (Ecotrin) 81 mg PO DAILY [facility] Last Admin: 03/21/18 09:17 Dose: 81 mg Enoxaparin Sodium (Lovenox) 40 mg SC DAILY [facility] Last Admin: 03/21/18 09:17 Dose: 40 mg Guaifenesin (Mucinex La) 600 mg PO BID [facility] Last Admin: 03/21/18 18:05 Dose: 600 mg Azithromycin 500 mg/ Sodium (Chloride) 250 mls @ 250 mls/hr IVPB DAILY [facility] PRN Reason: Protocol Last Admin: 03/21/18 10:44 Dose: 250 mls/hr Insulin Human Regular (Novolin R) 0 unit SC ACHS [facility] PRN Reason: Protocol Last Admin: 03/21/18 16:45 Dose: Not Given Methylprednisolone (Solu-Medrol) 60 mg IVP Q6H [facility] Last Admin: 03/21/18 18:05 Dose: 60 mg Rosuvastatin Calcium (Crestor) 5 mg PO HS [facility] Last Admin: 03/20/18 21:15 Dose: 5 mg Tiotropium [place] (Spiriva) 18 mcg INH RQ24 [facility] - Labs Labs: 03/21/18 08:29 03/21/18 08:29 - Constitutional Appears: Chronically Ill - Head Exam Head Exam: ATRAUMATIC, NORMAL INSPECTION, NORMOCEPHALIC - Eye Exam Eye Exam: Normal appearance - ENT Exam ENT Exam: Mucous Membranes Dry - Neck Exam Neck Exam: Full ROM - Respiratory Exam Respiratory Exam: Accessory Muscle Use, Decreased Breath Sounds, Prolonged Expiratory Phase - Cardiovascular Exam Cardiovascular Exam: REGULAR RHYTHM, +S1, +S2 - GI/Abdominal Exam GI & Abdominal Exam: Normal Bowel Sounds - Extremities Exam Extremities Exam: Full ROM - Neurological Exam Neurological Exam: Alert, Awake, CN II-XII Intact - Psychiatric Exam Psychiatric exam: Normal Mood - Skin Skin Exam: Pallor Assessment and Plan (1) Bronchitis Status: Acute (2) Hypertensive cardiovascular disease Status: Chronic (3) Coronary arteriosclerosis Status: Chronic (4) Tachypnea Status: Acute (5) Respiratory acidosis Status: Acute (6) Pulmonary artery hypertension Status: Suspected (7) COPD exacerbation Status: Acute (8) Emphysema lung Status: Chronic - Assessment and Plan (Free Text) Plan: Continue present rx.
[2018-03-22] MEDS: MethylPREDNISolone 40 mg Vial IVP SCH ×4 (00:37→21:15)
[2018-03-22] MEDS: Albuterol-Ipratrop 3 mg / 0.5 (3 ml) UD INH SCH ×4 (03:53→19:57)
[2018-03-22] MEDS: (Novolin R) Insulin Human Regular 100 units/ml vial SC SCH ×4 (08:34→21:19)
[2018-03-22] MEDS: guaiFENesin 600 mg ER Tab PO SCH ×2 (10:19→17:26)
[2018-03-22] MEDS: Enoxaparin 40 mg Syringe SC SCH (10:19)
[2018-03-22] MEDS: Azithromycin 500 MG in Sodium Chloride 0.9% 250 ML IVPB SCH (11:00)
[2018-03-22] MEDS ORDERED: MethylPREDNISolone 40 mg Vial IVP SCH (12:00)
[2018-03-22 13:55] LABS: BASO % 0.2 % (0.0-2.0); HEMOGLOBIN 13.7 g/dL (11.0-16.0); LYMPH # 1.4 K/uL (1.0-4.3); LYMPH % 9.3 % (20.0-40.0); MEAN CELL VOLUME 90.2 fL (81.0-99.0); MEAN CORPUSCULAR HEMOGLOBIN 30.6 pg (27.0-31.0); MEAN CORPUSCULAR HGB CONC 33.9 g/dL (33.0-37.0); MEAN PLATELET VOLUME 7.4 fL (7.2-11.7); MONO # 0.5 K/uL (0.0-0.8); MONO % 3.4 % (0.0-10.0); NEUT # 13.3 K/uL (1.8-7.0); NEUT % 87.1 % (50.0-75.0); PLATELET COUNT 262 K/uL (130-400); RBC 4.48 Mil/uL (3.80-5.20); RED CELL DISTRIBUTION WIDTH 13.8 % (11.5-14.5); WHITE BLOOD COUNT 15.3 K/uL (4.8-10.8)
[2018-03-22 14:05] LABS: BLOOD UREA NITROGEN 18 mg/dL (7-17); CALCIUM 8.2 mg/dl (8.6-10.4); GFR NON-AFRICAN AMERICAN > 60
[2018-03-22 14:46] LABS: LYMPHOCYTE 9 % (20-40); MONOCYTE 2 % (0-10); NEUTROPHIL 88 % (50-75); PLATELET ESTIMATE NORMAL (NORMAL); REACTIVE LYMPHOCYTES 1 % (0-0); TOTAL CELLS COUNTED 100
--- NOTE | 2018-03-22 16:12 | CP.PCM.PN ---
Subjective - Date & Time of Evaluation Date of Evaluation: 03/22/18 Time of Evaluation: 13:40 - Subjective Subjective: patient seen and examined Still complaining of shortness of breath and cough which is mostly dry Afebrile No chest pain Objective - Vital Signs/Intake and Output Vital Signs (last 24 hours): Temp Pulse Resp BP Pulse Ox 97.8 F 99 H 20 138/80 96 03/22/18 08:00 03/22/18 08:00 03/22/18 08:00 03/22/18 08:00 03/22/18 08:00 Intake and Output: 03/22/18 03/22/18 06:59 18:59 Intake Total 120 730 Balance 120 730 - Medications Medications: Current Medications Acetylcysteine (Acetylcysteine 20%) 4 ml INH Q6H [facility] Albuterol/Ipratropium (Duoneb 3 Mg/0.5 Mg (3 Ml) Ud) 3 ml INH RQ6 [facility] Last Admin: 03/22/18 13:48 Dose: 3 ml Amlodipine Besylate (Norvasc) 5 mg PO DAILY [facility] Last Admin: 03/22/18 10:19 Dose: 5 mg Aspirin (Ecotrin) 81 mg PO DAILY [facility] Last Admin: 03/22/18 10:19 Dose: 81 mg Budesonide (Pulmicort Respules) 0.5 mg INH RQ12 [facility] Enoxaparin Sodium (Lovenox) 40 mg SC DAILY [facility] Last Admin: 03/22/18 10:19 Dose: 40 mg Guaifenesin (Mucinex La) 600 mg PO BID [facility] Last Admin: 03/22/18 10:19 Dose: 600 mg Insulin Human Regular (Novolin R) 0 unit SC ACHS [facility] PRN Reason: Protocol Last Admin: 03/22/18 12:32 Dose: 1 units Methylprednisolone (Solu-Medrol) 40 mg IVP Q8 [facility] Rosuvastatin Calcium (Crestor) 5 mg PO HS [facility] Last Admin: 03/21/18 21:57 Dose: 5 mg Tiotropium [place] (Spiriva) 18 mcg INH RQ24 [facility] - Labs Labs: 03/22/18 13:50 03/22/18 13:50 - Head Exam Head Exam: ATRAUMATIC, NORMOCEPHALIC - Eye Exam Eye Exam: Normal appearance - ENT Exam ENT Exam: Mucous Membranes Moist - Neck Exam Neck Exam: Normal Inspection - Respiratory Exam Respiratory Exam: Clear to Ausculation Bilateral - Cardiovascular Exam Cardiovascular Exam: REGULAR RHYTHM - GI/Abdominal Exam GI & Abdominal Exam: Soft, Normal Bowel Sounds - Extremities Exam Extremities Exam: Normal Inspection - Neurological Exam Neurological Exam: Alert, Oriented x3 Assessment and Plan (1) COPD exacerbation Assessment & Plan: continue IV steroids Nebulizer treatment Add budesonide and Mucomyst On azithromycin BiPAP as needed Follow-up ABG Status: Acute (2) Multiple lung nodules Status: Acute
[2018-03-22] MEDS ORDERED: Acetylcysteine 20% Inhal Soln (4ml) INH SCH (16:15)
--- NOTE | 2018-03-22 17:48 | RAD ---
Date of service: 03/22/2018 PROCEDURE: CHEST RADIOGRAPH, 1 VIEW HISTORY: persistent SOB COMPARISON: Comparison made with prior chest radiograph and CTA chest both dated 03/18/2018. FINDINGS: LUNGS: Lung rose appear slightly hyperinflated consistent with set significant centrilobular emphysematous changes seen to much better advantage on prior high-resolution CT scan chest. PLEURA: No pneumothorax or pleural fluid seen. CARDIOVASCULAR: Sternotomy wires and CABG clips. OSSEOUS STRUCTURES: No significant abnormalities. VISUALIZED UPPER ABDOMEN: Normal. OTHER FINDINGS: None. IMPRESSION: Significant centrilobular emphysematous changes manifest by lucent lungs and hyperinflation. Please refer to prior CTA chest which shows these changes to much better advantage.
--- NOTE | 2018-03-22 19:52 | CP.PCM.PN ---
Subjective - Date & Time of Evaluation Date of Evaluation: 03/22/18 Time of Evaluation: 19:53 - Subjective Subjective: Still c/o of SOB with non productive cough, still high level CO2. Slowly improving Objective - Vital Signs/Intake and Output Vital Signs (last 24 hours): Temp Pulse Resp BP Pulse Ox 98.2 F 96 H 20 133/71 96 03/22/18 16:06 03/22/18 16:06 03/22/18 16:06 03/22/18 16:06 03/22/18 16:06 Intake and Output: 03/22/18 03/22/18 11:59 23:59 Intake Total 120 730 Balance 120 730 - Medications Medications: Current Medications Acetylcysteine (Acetylcysteine 20%) 4 ml INH Q6H [facility] Albuterol/Ipratropium (Duoneb 3 Mg/0.5 Mg (3 Ml) Ud) 3 ml INH RQ6 [facility] Last Admin: 03/22/18 13:48 Dose: 3 ml Amlodipine Besylate (Norvasc) 5 mg PO DAILY [facility] Last Admin: 03/22/18 10:19 Dose: 5 mg Aspirin (Ecotrin) 81 mg PO DAILY [facility] Last Admin: 03/22/18 10:19 Dose: 81 mg Budesonide (Pulmicort Respules) 0.5 mg INH RQ12 [facility] Enoxaparin Sodium (Lovenox) 40 mg SC DAILY [facility] Last Admin: 03/22/18 10:19 Dose: 40 mg Guaifenesin (Mucinex La) 600 mg PO BID [facility] Last Admin: 03/22/18 17:26 Dose: 600 mg Insulin Human Regular (Novolin R) 0 unit SC ACHS [facility] PRN Reason: Protocol Last Admin: 03/22/18 17:30 Dose: 2 units Methylprednisolone (Solu-Medrol) 40 mg IVP Q8 [facility] Rosuvastatin Calcium (Crestor) 5 mg PO HS [facility] Last Admin: 03/21/18 21:57 Dose: 5 mg Tiotropium [place] (Spiriva) 18 mcg INH RQ24 [facility] - Labs Labs: 03/22/18 13:50 03/22/18 13:50 - Constitutional Appears: Older Than Stated Age, Chronically Ill - Head Exam Head Exam: ATRAUMATIC, NORMAL INSPECTION, NORMOCEPHALIC - Eye Exam Eye Exam: Normal appearance - ENT Exam ENT Exam: Mucous Membranes Dry - Respiratory Exam Respiratory Exam: Accessory Muscle Use, Decreased Breath Sounds, Prolonged Expiratory Phase - Cardiovascular Exam Cardiovascular Exam: REGULAR RHYTHM, +S1, +S2 - GI/Abdominal Exam GI & Abdominal Exam: Soft, Normal Bowel Sounds - Extremities Exam Extremities Exam: Full ROM - Neurological Exam Neurological Exam: Alert, Awake, CN II-XII Intact - Psychiatric Exam Psychiatric exam: Normal Mood - Skin Skin Exam: Pallor Assessment and Plan (1) Bronchitis Status: Acute (2) Hypertensive cardiovascular disease Status: Chronic (3) Coronary arteriosclerosis Status: Chronic (4) Tachypnea Status: Acute (5) Respiratory acidosis Status: Acute (6) Pulmonary artery hypertension Status: Suspected (7) COPD exacerbation Status: Acute (8) Emphysema lung Status: Chronic - Assessment and Plan (Free Text) Plan: Continue present rx will follow pulmonary consult
[2018-03-22] MEDS: Budesonide 0.5 mg/2 ml Inhal Susp UD INH SCH ×2 (19:55→19:57)
[2018-03-23] MEDS: Albuterol-Ipratrop 3 mg / 0.5 (3 ml) UD INH SCH ×4 (02:08→19:27)
[2018-03-23] MEDS: Acetylcysteine 20% Inhal Soln (4ml) INH SCH ×4 (02:08→19:27)
[2018-03-23] MEDS: MethylPREDNISolone 40 mg Vial IVP SCH ×3 (05:25→21:08)
[2018-03-23] MEDS: Budesonide 0.5 mg/2 ml Inhal Susp UD INH SCH ×2 (07:36→19:27)
[2018-03-23] MEDS: (Novolin R) Insulin Human Regular 100 units/ml vial SC SCH ×4 (08:29→21:30)
[2018-03-23] MEDS: guaiFENesin 600 mg ER Tab PO SCH ×2 (09:56→17:23)
[2018-03-23] MEDS: Enoxaparin 40 mg Syringe SC SCH (09:56)
[2018-03-23] MEDS: Tiotropium 18 mcg Cap For Inhalation INH SCH (10:17)
--- NOTE | 2018-03-23 12:51 | CP.PCM.PN ---
Subjective - Date & Time of Evaluation Date of Evaluation: 03/23/18 Time of Evaluation: 19:05 - Subjective Subjective: Still symptomatic, SOB O2 sat on minimal extortion 81%. Objective - Vital Signs/Intake and Output Vital Signs (last 24 hours): Temp Pulse Resp BP Pulse Ox 99.0 F 89 20 145/81 96 03/23/18 08:00 03/23/18 09:55 03/23/18 08:00 03/23/18 09:55 03/23/18 08:00 Intake and Output: 03/23/18 03/23/18 11:59 23:59 Intake Total 315 Balance 315 - Medications Medications: Current Medications Acetylcysteine (Acetylcysteine 20%) 4 ml INH Q6H [facility] Last Admin: 03/23/18 07:35 Dose: 4 ml Albuterol/Ipratropium (Duoneb 3 Mg/0.5 Mg (3 Ml) Ud) 3 ml INH RQ6 [facility] Last Admin: 03/23/18 07:35 Dose: 3 ml Amlodipine Besylate (Norvasc) 5 mg PO DAILY [facility] Last Admin: 03/23/18 09:56 Dose: 5 mg Aspirin (Ecotrin) 81 mg PO DAILY [facility] Last Admin: 03/23/18 09:56 Dose: 81 mg Budesonide (Pulmicort Respules) 0.5 mg INH RQ12 [facility] Last Admin: 03/23/18 07:36 Dose: 0.5 mg Enoxaparin Sodium (Lovenox) 40 mg SC DAILY [facility] Last Admin: 03/23/18 09:56 Dose: 40 mg Guaifenesin (Mucinex La) 600 mg PO BID [facility] Last Admin: 03/23/18 09:56 Dose: 600 mg Insulin Human Regular (Novolin R) 0 unit SC [facility] PRN Reason: Protocol Last Admin: 03/23/18 12:30 Dose: 1 units Methylprednisolone (Solu-Medrol) 40 mg IVP Q12 [facility] Last Admin: 03/23/18 09:56 Dose: 40 mg Rosuvastatin Calcium (Crestor) 5 mg PO HS [facility] Last Admin: 03/22/18 21:15 Dose: 5 mg Tiotropium [place] (Spiriva) 18 mcg INH RQ24 [facility] Last Admin: 03/23/18 10:17 Dose: 18 mcg - Labs Labs: 03/22/18 13:50 03/22/18 13:50 - Constitutional Appears: In Acute Distress, Chronically Ill - Head Exam Head Exam: ATRAUMATIC, NORMAL INSPECTION, NORMOCEPHALIC - Eye Exam Eye Exam: Normal appearance - ENT Exam ENT Exam: Mucous Membranes Moist - Neck Exam Neck Exam: Full ROM - Respiratory Exam Respiratory Exam: Accessory Muscle Use, Decreased Breath Sounds - Cardiovascular Exam Cardiovascular Exam: REGULAR RHYTHM, +S1, +S2 - GI/Abdominal Exam GI & Abdominal Exam: Normal Bowel Sounds - Neurological Exam Neurological Exam: Alert, Awake, CN II-XII Intact - Psychiatric Exam Psychiatric exam: Normal Affect - Skin Skin Exam: Pallor Assessment and Plan (1) Bronchitis Status: Acute (2) Hypertensive cardiovascular disease Status: Chronic (3) Coronary arteriosclerosis Status: Chronic (4) Tachypnea Status: Acute (5) Respiratory acidosis Status: Acute (6) Pulmonary artery hypertension Status: Suspected (7) COPD exacerbation Status: Acute (8) Emphysema lung Status: Chronic - Assessment and Plan (Free Text) Plan: Slowly respond to rx. Will follow with pulmonary.
[2018-03-23 14:44] LABS: ABG ALLEN TEST POS; ARTERIAL BLOOD GAS HCO3 34.1 mmol/L (21-28); ARTERIAL BLOOD GAS HEMOGLOBIN 14.3 g/dL (11.7-17.4); ARTERIAL BLOOD GAS O2 SAT 98.9 % (95-98); ARTERIAL BLOOD GAS PCO2 38 mm/Hg (35-45); ARTERIAL BLOOD GAS PH 7.57 (7.35-7.45); ARTERIAL BLOOD GAS PO2 86 mm/Hg (80-100)
--- NOTE | 2018-03-23 15:45 | CP.PCM.PN ---
Subjective - Date & Time of Evaluation Date of Evaluation: 03/23/18 Time of Evaluation: 09:00 - Subjective Subjective: the patient seen and examined Still complaining of dyspnea on exertion and difficulty bringing up phlegm No chest pain Afebrile Objective - Vital Signs/Intake and Output Vital Signs (last 24 hours): Temp Pulse Resp BP Pulse Ox 99.0 F 89 20 135/78 96 03/23/18 08:00 03/23/18 09:55 03/23/18 08:00 03/23/18 14:31 03/23/18 08:00 Intake and Output: 03/23/18 03/23/18 06:59 18:59 Intake Total 315 480 Balance 315 480 - Medications Medications: Current Medications Acetylcysteine (Acetylcysteine 20%) 4 ml INH Q6H [facility] Last Admin: 03/23/18 13:42 Dose: 4 ml Albuterol/Ipratropium (Duoneb 3 Mg/0.5 Mg (3 Ml) Ud) 3 ml INH RQ6 [facility] Last Admin: 03/23/18 13:41 Dose: 3 ml Amlodipine Besylate (Norvasc) 5 mg PO DAILY [facility] Last Admin: 03/23/18 09:56 Dose: 5 mg Aspirin (Ecotrin) 81 mg PO DAILY [facility] Last Admin: 03/23/18 09:56 Dose: 81 mg Budesonide (Pulmicort Respules) 0.5 mg INH RQ12 [facility] Last Admin: 03/23/18 07:36 Dose: 0.5 mg Enoxaparin Sodium (Lovenox) 40 mg SC DAILY [facility] Last Admin: 03/23/18 09:56 Dose: 40 mg Guaifenesin (Mucinex La) 600 mg PO BID [facility] Last Admin: 03/23/18 09:56 Dose: 600 mg Insulin Human Regular (Novolin R) 0 unit SC ACHS [facility] PRN Reason: Protocol Last Admin: 03/23/18 12:30 Dose: 1 units Methylprednisolone (Solu-Medrol) 40 mg IVP Q12 [facility] Last Admin: 03/23/18 09:56 Dose: 40 mg Rosuvastatin Calcium (Crestor) 5 mg PO HS [facility] Last Admin: 03/22/18 21:15 Dose: 5 mg Tiotropium [place] (Spiriva) 18 mcg INH RQ24 [facility] Last Admin: 03/23/18 10:17 Dose: 18 mcg - Labs Labs: 08/22/18 13:50 03/22/18 13:50 - Head Exam Head Exam: ATRAUMATIC, NORMOCEPHALIC - ENT Exam ENT Exam: Mucous Membranes Moist - Neck Exam Neck Exam: Normal Inspection - Respiratory Exam Respiratory Exam: Decreased Breath Sounds - Cardiovascular Exam Cardiovascular Exam: REGULAR RHYTHM - GI/Abdominal Exam GI & Abdominal Exam: Soft, Normal Bowel Sounds - Extremities Exam Extremities Exam: Normal Inspection - Neurological Exam Neurological Exam: Alert, Oriented x3 Assessment and Plan (1) COPD exacerbation Assessment & Plan: Taper IV steroids ABG consistent with alkalosis Start Xanax Lasix one dose now Continue nebulizer treatment Status: Acute (2) Multiple lung nodules Status: Acute
[2018-03-24] MEDS: Albuterol-Ipratrop 3 mg / 0.5 (3 ml) UD INH SCH (01:40)
[2018-03-24] MEDS: Acetylcysteine 20% Inhal Soln (4ml) INH SCH ×2 (01:40→19:40)
[2018-03-24] MEDS: (Novolin R) Insulin Human Regular 100 units/ml vial SC SCH ×4 (08:21→21:53)
[2018-03-24] MEDS: guaiFENesin 600 mg ER Tab PO SCH ×2 (10:20→17:26)
[2018-03-24] MEDS: MethylPREDNISolone 40 mg Vial IVP SCH ×2 (10:20→21:54)
[2018-03-24] MEDS: Tiotropium 18 mcg Cap For Inhalation INH SCH (12:06)
[2018-03-24] MEDS: Budesonide 0.5 mg/2 ml Inhal Susp UD INH SCH ×2 (12:07→19:41)
[2018-03-24] MEDS: Enoxaparin 40 mg Syringe SC SCH (12:17)
[2018-03-24] MEDS: Azithromycin 500 MG in Sodium Chloride 0.9% 250 ML IVPB SCH (12:17)
--- NOTE | 2018-03-24 13:03 | CP.PCM.PN ---
Subjective - Date & Time of Evaluation Date of Evaluation: 03/24/18 Time of Evaluation: 08:00 - Subjective Subjective: patient seen and examined Breathing better Less cough Afebrile Patient was started on anxiolytic Patient got one dose of Lasix yesterday Objective - Vital Signs/Intake and Output Vital Signs (last 24 hours): Temp Pulse Resp BP Pulse Ox 98.1 F 87 20 147/83 95 03/24/18 07:16 03/24/18 07:16 03/24/18 07:16 03/24/18 07:16 03/24/18 07:16 Intake and Output: 03/24/18 03/24/18 06:59 18:59 Intake Total 180 Balance 180 - Medications Medications: Current Medications Acetylcysteine (Acetylcysteine 20%) 4 ml INH Q6H [facility] Last Admin: 03/24/18 01:40 Dose: Not Given Alprazolam (Xanax) 0.25 mg PO BID [facility] Stop: 03/25/18 18:01 Last Admin: 03/24/18 10:20 Dose: 0.25 mg Amlodipine Besylate (Norvasc) 5 mg PO DAILY [facility] Last Admin: 03/24/18 10:20 Dose: 5 mg Aspirin (Ecotrin) 81 mg PO DAILY [facility] Last Admin: 03/24/18 10:20 Dose: 81 mg Budesonide (Pulmicort Respules) 0.5 mg INH RQ12 [facility] Last Admin: 03/24/18 12:07 Dose: 0.5 mg Doxycycline Hyclate (Doryx) 100 mg PO Q12H [facility] PRN Reason: Protocol Last Admin: 03/24/18 10:21 Dose: 100 mg Enoxaparin Sodium (Lovenox) 40 mg SC DAILY [facility] Last Admin: 03/24/18 12:17 Dose: 40 mg Guaifenesin (Mucinex La) 600 mg PO BID [facility] Last Admin: 03/24/18 10:20 Dose: 600 mg Azithromycin 500 mg/ Sodium (Chloride) 250 mls @ 167 mls/hr IVPB Q24H [facility] PRN Reason: Protocol Last Admin: 03/24/18 12:17 Dose: 167 mls/hr Insulin Human Regular (Novolin R) 0 unit SC ACHS [facility] PRN Reason: Protocol Last Admin: 03/24/18 12:18 Dose: 1 units Methylprednisolone (Solu-Medrol) 40 mg IVP Q12 [facility] Last Admin: 03/24/18 10:20 Dose: 40 mg Rosuvastatin Calcium (Crestor) 5 mg PO HS [facility] Last Admin: 03/23/18 21:08 Dose: 5 mg Tiotropium [place] (Spiriva) 18 mcg INH RQ24 [facility] Last Admin: 03/24/18 12:06 Dose: 18 mcg - Labs Labs: 03/22/18 13:50 03/22/18 13:50 - Head Exam Head Exam: ATRAUMATIC, NORMOCEPHALIC - ENT Exam ENT Exam: Mucous Membranes Moist - Neck Exam Neck Exam: Normal Inspection - Respiratory Exam Respiratory Exam: Clear to Ausculation Bilateral - Cardiovascular Exam Cardiovascular Exam: REGULAR RHYTHM - GI/Abdominal Exam GI & Abdominal Exam: Soft, Normal Bowel Sounds - Extremities Exam Extremities Exam: Normal Inspection Assessment and Plan (1) COPD exacerbation Assessment & Plan: taper steroids Continue nebulizer treatment Continue budesonide Xanax as needed ABG room air and check saturation on exertion Status: Acute (2) Multiple lung nodules Status: Acute
[2018-03-25] MEDS: Acetylcysteine 20% Inhal Soln (4ml) INH SCH ×5 (01:53→19:54)
[2018-03-25] MEDS: Budesonide 0.5 mg/2 ml Inhal Susp UD INH SCH ×2 (07:23→19:53)
[2018-03-25] MEDS: (Novolin R) Insulin Human Regular 100 units/ml vial SC SCH ×4 (07:51→21:57)
--- NOTE | 2018-03-25 08:55 | CP.PCM.PN ---
Subjective - Date & Time of Evaluation Date of Evaluation: 03/24/18 Time of Evaluation: 14:00 - Subjective Subjective: Still sob, desaturated on minimal exertion Objective - Vital Signs/Intake and Output Vital Signs (last 24 hours): Temp Pulse Resp BP Pulse Ox 97.9 F 65 20 147/71 92 L 03/25/18 08:32 03/25/18 08:32 03/25/18 08:32 03/25/18 08:32 03/25/18 08:32 Intake and Output: 03/24/18 03/25/18 23:59 11:59 Intake Total 750 240 Balance 750 240 - Medications Medications: Current Medications Acetylcysteine (Acetylcysteine 20%) 4 ml INH Q6H [facility] Last Admin: 03/25/18 07:23 Dose: Not Given Alprazolam (Xanax) 0.25 mg PO BID [facility] Stop: 03/25/18 18:01 Last Admin: 03/24/18 17:25 Dose: 0.25 mg Amlodipine Besylate (Norvasc) 5 mg PO DAILY [facility] Last Admin: 03/24/18 10:20 Dose: 5 mg Aspirin (Ecotrin) 81 mg PO DAILY [facility] Last Admin: 03/24/18 10:20 Dose: 81 mg Budesonide (Pulmicort Respules) 0.5 mg INH RQ12 [facility] Last Admin: 03/25/18 07:23 Dose: Not Given Doxycycline Hyclate (Doryx) 100 mg PO Q12H [facility] PRN Reason: Protocol Last Admin: 03/24/18 21:53 Dose: 100 mg Enoxaparin Sodium (Lovenox) 40 mg SC DAILY [facility] Last Admin: 03/24/18 12:17 Dose: 40 mg Guaifenesin (Mucinex La) 600 mg PO BID [facility] Last Admin: 03/24/18 17:26 Dose: 600 mg Azithromycin 500 mg/ Sodium (Chloride) 250 mls @ 167 mls/hr IVPB Q24H [facility] PRN Reason: Protocol Last Admin: 03/24/18 12:17 Dose: 167 mls/hr Insulin Human Regular (Novolin R) 0 unit SC ACHS [facility] PRN Reason: Protocol Last Admin: 03/25/18 07:51 Dose: Not Given Methylprednisolone (Solu-Medrol) 40 mg IVP Q12 [facility] Last Admin: 08/24/18 21:54 Dose: 40 mg Rosuvastatin Calcium (Crestor) 5 mg PO HS [facility] Last Admin: 03/24/18 21:53 Dose: 5 mg Tiotropium [place] (Spiriva) 18 mcg INH RQ24 [facility] Last Admin: 03/24/18 12:06 Dose: 18 mcg - Labs Labs: 03/22/18 13:50 03/22/18 13:50 - Constitutional Appears: Chronically Ill - Head Exam Head Exam: ATRAUMATIC, NORMAL INSPECTION, NORMOCEPHALIC - Eye Exam Eye Exam: Normal appearance - ENT Exam ENT Exam: Mucous Membranes Moist - Neck Exam Neck Exam: Full ROM - Respiratory Exam Respiratory Exam: Accessory Muscle Use, Decreased Breath Sounds, Prolonged Expiratory Phase - Cardiovascular Exam Cardiovascular Exam: REGULAR RHYTHM, +S1, +S2 - GI/Abdominal Exam GI & Abdominal Exam: Normal Bowel Sounds - Extremities Exam Extremities Exam: Full ROM - Neurological Exam Neurological Exam: Alert, Awake, CN II-XII Intact Assessment and Plan (1) Bronchitis Status: Acute (2) Hypertensive cardiovascular disease Status: Chronic (3) Coronary arteriosclerosis Status: Chronic (4) Tachypnea Status: Acute (5) Respiratory acidosis Status: Acute (6) Pulmonary artery hypertension Status: Suspected (7) COPD exacerbation Status: Acute (8) Emphysema lung Status: Chronic
[2018-03-25] MEDS: Enoxaparin 40 mg Syringe SC SCH (10:08)
[2018-03-25] MEDS: MethylPREDNISolone 40 mg Vial IVP SCH (10:08)
[2018-03-25] MEDS: Azithromycin 500 MG in Sodium Chloride 0.9% 250 ML IVPB SCH (10:08)
[2018-03-25] MEDS: guaiFENesin 600 mg ER Tab PO SCH ×2 (10:08→17:16)
[2018-03-25 11:48] LABS: BASO % 0.1 % (0.0-2.0); LYMPH # 2.7 K/uL (1.0-4.3); LYMPH % 14.1 % (20.0-40.0); MEAN CELL VOLUME 89.6 fL (81.0-99.0); MEAN CORPUSCULAR HEMOGLOBIN 29.9 pg (27.0-31.0); MEAN CORPUSCULAR HGB CONC 33.4 g/dL (33.0-37.0); MEAN PLATELET VOLUME 7.2 fL (7.2-11.7); MONO # 1.4 K/uL (0.0-0.8); NEUT # 15.3 K/uL (1.8-7.0); NEUT % 78.8 % (50.0-75.0); NRBC % 0.1 % (0.0-2.0); RBC 5.01 Mil/uL (3.80-5.20); RED CELL DISTRIBUTION WIDTH 13.5 % (11.5-14.5); WHITE BLOOD COUNT 19.5 K/uL (4.8-10.8)
[2018-03-25 12:03] LABS: BLOOD UREA NITROGEN 27 mg/dL (7-17); CALCIUM 8.3 mg/dl (8.6-10.4); GFR NON-AFRICAN AMERICAN > 60
--- NOTE | 2018-03-25 13:25 | CP.PCM.PN ---
Subjective - Date & Time of Evaluation Date of Evaluation: 03/25/18 Time of Evaluation: 13:26 - Subjective Subjective: patient slowly improving. Still sob, productive cough. Will decrease to daily dose of iv steroid if she well tolerated the low dose will DC in am on oral steroids. Patient educated to use oxygen, educated to quit smoking and educated about the hazard to smoke while use oxygen. Objective - Vital Signs/Intake and Output Vital Signs (last 24 hours): Temp Pulse Resp BP Pulse Ox 97.9 F 65 20 147/71 92 L 03/25/18 08:32 03/25/18 08:32 03/25/18 08:32 03/25/18 08:32 03/25/18 08:32 Intake and Output: 03/25/18 03/25/18 11:59 23:59 Intake Total 240 Balance 240 - Medications Medications: Current Medications Acetylcysteine (Acetylcysteine 20%) 4 ml INH Q6H [facility] Last Admin: 03/25/18 07:23 Dose: Not Given Alprazolam (Xanax) 0.25 mg PO BID [facility] Stop: 03/25/18 18:01 Last Admin: 03/25/18 10:08 Dose: 0.25 mg Amlodipine Besylate (Norvasc) 5 mg PO DAILY [facility] Last Admin: 03/25/18 10:08 Dose: 5 mg Aspirin (Ecotrin) 81 mg PO DAILY [facility] Last Admin: 03/25/18 10:08 Dose: 81 mg Budesonide (Pulmicort Respules) 0.5 mg INH RQ12 [facility] Last Admin: 03/25/18 07:23 Dose: Not Given Doxycycline Hyclate (Doryx) 100 mg PO Q12H [facility] PRN Reason: Protocol Last Admin: 03/25/18 10:09 Dose: 100 mg Enoxaparin Sodium (Lovenox) 40 mg SC DAILY [facility] Last Admin: 03/25/18 10:08 Dose: 40 mg Guaifenesin (Mucinex La) 600 mg PO BID [facility] Last Admin: 03/25/18 10:08 Dose: 600 mg Azithromycin 500 mg/ Sodium (Chloride) 250 mls @ 167 mls/hr IVPB Q24H [facility] PRN Reason: Protocol Last Admin: 03/25/18 10:08 Dose: 167 mls/hr Insulin Human Regular (Novolin R) 0 unit SC ACHS [facility] PRN Reason: Protocol Last Admin: 03/25/18 12:18 Dose: 1 units Methylprednisolone (Solu-Medrol) 40 mg IVP DAILY [facility] Rosuvastatin Calcium (Crestor) 5 mg PO HS [facility] Last Admin: 03/24/18 21:53 Dose: 5 mg Tiotropium [place] (Spiriva) 18 mcg INH RQ24 [facility] Last Admin: 03/24/18 12:06 Dose: 18 mcg - Labs Labs: 03/25/18 11:42 03/25/18 11:42 - Constitutional Appears: Chronically Ill - Head Exam Head Exam: ATRAUMATIC, NORMAL INSPECTION, NORMOCEPHALIC - Eye Exam Eye Exam: Normal appearance - ENT Exam ENT Exam: Normal External Ear Exam - Neck Exam Neck Exam: Full ROM - Respiratory Exam Respiratory Exam: Decreased Breath Sounds, Prolonged Expiratory Phase - Cardiovascular Exam Cardiovascular Exam: REGULAR RHYTHM, +S1, +S2 - GI/Abdominal Exam GI & Abdominal Exam: Soft, Normal Bowel Sounds - Extremities Exam Extremities Exam: Normal Inspection - Neurological Exam Neurological Exam: Alert, Awake, CN II-XII Intact, Oriented x3 - Psychiatric Exam Psychiatric exam: Normal Affect - Skin Skin Exam: Normal Color Assessment and Plan (1) Bronchitis Status: Acute (2) Hypertensive cardiovascular disease Status: Chronic (3) Coronary arteriosclerosis Status: Chronic (4) Tachypnea Status: Acute (5) Respiratory acidosis Status: Acute (6) Pulmonary artery hypertension Status: Suspected (7) COPD exacerbation Status: Acute (8) Emphysema lung Status: Chronic - Assessment and Plan (Free Text) Plan: As above.
--- NOTE | 2018-03-25 15:59 | CP.PCM.PN ---
Subjective - Date & Time of Evaluation Date of Evaluation: 03/25/18 Time of Evaluation: 13:00 - Subjective Subjective: patient seen and examined Breathing better Able to bring up phlegm Afebrile Objective - Vital Signs/Intake and Output Vital Signs (last 24 hours): Temp Pulse Resp BP Pulse Ox 97.9 F 65 20 147/71 92 L 03/25/18 08:32 03/25/18 08:32 03/25/18 08:32 03/25/18 08:32 03/25/18 08:32 Intake and Output: 03/25/18 03/25/18 06:59 18:59 Intake Total 970 Balance 970 - Medications Medications: Current Medications Acetylcysteine (Acetylcysteine 20%) 4 ml INH Q6H [facility] Last Admin: 03/25/18 07:23 Dose: Not Given Alprazolam (Xanax) 0.25 mg PO BID [facility] Stop: 03/25/18 18:01 Last Admin: 03/25/18 10:08 Dose: 0.25 mg Amlodipine Besylate (Norvasc) 5 mg PO DAILY [facility] Last Admin: 03/25/18 10:08 Dose: 5 mg Aspirin (Ecotrin) 81 mg PO DAILY [facility] Last Admin: 03/25/18 10:08 Dose: 81 mg Budesonide (Pulmicort Respules) 0.5 mg INH RQ12 [facility] Last Admin: 03/25/18 07:23 Dose: Not Given Doxycycline Hyclate (Doryx) 100 mg PO Q12H [facility] PRN Reason: Protocol Last Admin: 03/25/18 10:09 Dose: 100 mg Enoxaparin Sodium (Lovenox) 40 mg SC DAILY [facility] Last Admin: 03/25/18 10:08 Dose: 40 mg Guaifenesin (Mucinex La) 600 mg PO BID [facility] Last Admin: 03/25/18 10:08 Dose: 600 mg Azithromycin 500 mg/ Sodium (Chloride) 250 mls @ 167 mls/hr IVPB Q24H [facility] PRN Reason: Protocol Last Admin: 03/25/18 10:08 Dose: 167 mls/hr Insulin Human Regular (Novolin R) 0 unit SC ACHS [facility] PRN Reason: Protocol Last Admin: 03/25/18 12:18 Dose: 1 units Methylprednisolone (Solu-Medrol) 40 mg IVP DAILY [facility] Rosuvastatin Calcium (Crestor) 5 mg PO HS [facility] Last Admin: 03/24/18 21:53 Dose: 5 mg Tiotropium [place] (Spiriva) 18 mcg INH RQ24 [facility] Last Admin: 03/24/18 12:06 Dose: 18 mcg - Labs Labs: 03/25/18 11:42 03/25/18 11:42 - Head Exam Head Exam: ATRAUMATIC, NORMOCEPHALIC - ENT Exam ENT Exam: Mucous Membranes Moist - Neck Exam Neck Exam: Normal Inspection - Respiratory Exam Respiratory Exam: Rhonchi - Cardiovascular Exam Cardiovascular Exam: REGULAR RHYTHM - GI/Abdominal Exam GI & Abdominal Exam: Soft, Normal Bowel Sounds Assessment and Plan (1) COPD exacerbation Assessment & Plan: p.o. prednisone Nebulizer treatment Budesonide Mucomyst Anxiolytic Status: Acute (2) Multiple lung nodules Status: Acute
[2018-03-26] MEDS: Acetylcysteine 20% Inhal Soln (4ml) INH SCH ×4 (01:48→21:26)
[2018-03-26] MEDS: Tiotropium 18 mcg Cap For Inhalation INH SCH (07:27)
[2018-03-26] MEDS: (Novolin R) Insulin Human Regular 100 units/ml vial SC SCH ×4 (07:58→21:35)
[2018-03-26 08:10] VITALS: RESP 20; O2SAT 95
[2018-03-26] MEDS: Budesonide 0.5 mg/2 ml Inhal Susp UD INH SCH ×2 (08:36→21:25)
[2018-03-26] MEDS ORDERED: MethylPREDNISolone 40 mg Vial IVP SCH (10:00)
[2018-03-26] MEDS: Enoxaparin 40 mg Syringe SC SCH (10:07)
[2018-03-26] MEDS: Azithromycin 500 MG in Sodium Chloride 0.9% 250 ML IVPB SCH (10:07)
[2018-03-26] MEDS: guaiFENesin 600 mg ER Tab PO SCH ×2 (10:07→17:58)
--- NOTE | 2018-03-26 12:07 | CP.PCM.PN ---
Subjective - Date & Time of Evaluation Date of Evaluation: 03/26/18 Time of Evaluation: 12:07 - Subjective Subjective: Pulmonary follow up, Covering Dr Riley The patient was Seen/interviewed and examined by me at the bedside, Medical records reviewed and Management issues were discussed and formulated with the house staff. Events reviewed Clinically and Respiratory status slowly improving She feels better and Able to bring up phlegm, which yellow and thick Currently on oral steroids. Alert, Awake, AAO x3. Less SOB, Comfortable, but severe dyspnea on minimal exertion. Breathing unlabored, on 2L NC O2 sat 94%. Denies any chest pain, Fever/chills or Palpitations Afebrile Still with Bilateral Exp wheezing on Exam Patient will be discharged on home oxygen and she was educated about the importance of continued smoking cessation Objective - Vital Signs/Intake and Output Vital Signs (last 24 hours): Temp Pulse Resp BP Pulse Ox 98.4 F 71 20 139/69 95 03/26/18 08:07 03/26/18 08:07 03/26/18 08:07 03/26/18 08:07 03/26/18 08:07 Intake and Output: 03/26/18 03/26/18 06:59 18:59 Intake Total 300 Balance 300 - Medications Medications: Current Medications Acetylcysteine (Acetylcysteine 20%) 4 ml INH Q6H [facility] Last Admin: 03/26/18 08:35 Dose: Not Given Amlodipine Besylate (Norvasc) 5 mg PO DAILY [facility] Last Admin: 03/26/18 10:07 Dose: 5 mg Aspirin (Ecotrin) 81 mg PO DAILY [facility] Last Admin: 03/26/18 10:07 Dose: 81 mg Budesonide (Pulmicort Respules) 0.5 mg INH RQ12 [facility] Last Admin: 03/26/18 08:36 Dose: 0.5 mg Doxycycline Hyclate (Doryx) 100 mg PO Q12H [facility] PRN Reason: Protocol Last Admin: 03/26/18 10:10 Dose: 100 mg Enoxaparin Sodium (Lovenox) 40 mg SC DAILY [facility] Last Admin: 03/26/18 10:07 Dose: 40 mg Guaifenesin (Mucinex La) 600 mg PO BID [facility] Last Admin: 03/26/18 10:07 Dose: 600 mg Azithromycin 500 mg/ Sodium (Chloride) 250 mls @ 167 mls/hr IVPB Q24H [facility] PRN Reason: Protocol Last Admin: 03/26/18 10:07 Dose: 167 mls/hr Insulin Human Regular (Novolin R) 0 unit SC ACHS [facility] PRN Reason: Protocol Last Admin: 03/26/18 07:58 Dose: Not Given Prednisone (Prednisone Tab) 20 mg PO DAILY [facility] Last Admin: 03/26/18 10:07 Dose: 20 mg Rosuvastatin Calcium (Crestor) 5 mg PO HS [facility] Last Admin: 03/25/18 21:42 Dose: 5 mg Tiotropium [place] (Spiriva) 18 mcg INH RQ24 [facility] Last Admin: 03/24/18 12:06 Dose: 18 mcg - Labs Labs: 03/25/18 11:42 03/25/18 11:42 - Constitutional Appears: Well, In Acute Distress (Mild, with minimal exersion ) - Head Exam Head Exam: ATRAUMATIC, NORMAL INSPECTION - Eye Exam Eye Exam: EOMI, Normal appearance - Neck Exam Neck Exam: Full ROM, Normal Inspection - Respiratory Exam Respiratory Exam: Prolonged Expiratory Phase, Wheezes. absent: Decreased Breath Sounds, Clear to Ausculation Bilateral, Rales, Rhonchi - Cardiovascular Exam Cardiovascular Exam: REGULAR RHYTHM, RRR, +S1, +S2. absent: JVD - GI/Abdominal Exam GI & Abdominal Exam: Soft. absent: Distended, Firm, Guarding, Rigid, Tenderness , Diminished Bowel Sounds - Back Exam Back Exam: absent: CVA tenderness (L), CVA tenderness (R) - Neurological Exam Neurological Exam: Alert, Awake, CN II-XII Intact, Motor Sensory Deficit, Normal Gait, Oriented x3. absent: Altered Assessment and Plan (1) COPD exacerbation Status: Acute (2) Multiple lung nodules Status: Acute (3) Bronchitis Status: Acute (4) Respiratory acidosis Status: Acute (5) Tachypnea Status: Acute (6) Emphysema lung Status: Chronic (7) Hypertensive cardiovascular disease Status: Chronic (8) Pulmonary artery hypertension Status: Suspected - Assessment and Plan (Free Text) Assessment: Clinically and Respiratory status slowly improving Continue current managements Continue PRN Albuterol Currently on oral steroids. Azithromycin, switch to PO x 5 days Guaifenesin 600mg [place] Continue Tiotropium Continue Pulmicort Respules 0.5 mg INH RQ12, Switch to Advair or symbicort on discharge DVT PPX with Lovenox 40 mg SC DAILY Repeat Chest CT scan in 3-6 month Pulmonary rehab should also be considered
[2018-03-26 13:55] LABS: BASO # 0.1 K/uL (0.0-0.2); BASO % 0.3 % (0.0-2.0); EOS % 0.2 % (0.0-4.0); HEMOGLOBIN 15.2 g/dL (11.0-16.0); LYMPH # 2.4 K/uL (1.0-4.3); LYMPH % 12.2 % (20.0-40.0); MEAN CELL VOLUME 90.7 fL (81.0-99.0); MEAN CORPUSCULAR HEMOGLOBIN 30.1 pg (27.0-31.0); MEAN CORPUSCULAR HGB CONC 33.2 g/dL (33.0-37.0); MEAN PLATELET VOLUME 7.6 fL (7.2-11.7); MONO # 0.7 K/uL (0.0-0.8); MONO % 3.6 % (0.0-10.0); NEUT # 16.2 K/uL (1.8-7.0); NEUT % 83.7 % (50.0-75.0); RBC 5.05 Mil/uL (3.80-5.20); RED CELL DISTRIBUTION WIDTH 13.8 % (11.5-14.5); WHITE BLOOD COUNT 19.3 K/uL (4.8-10.8)
[2018-03-26 14:06] LABS: BLOOD UREA NITROGEN 24 mg/dL (7-17); CALCIUM 8.2 mg/dl (8.6-10.4); GFR NON-AFRICAN AMERICAN > 60
--- NOTE | 2018-03-26 16:49 | CP.PCM.PN ---
Subjective - Date & Time of Evaluation Date of Evaluation: 03/26/18 Time of Evaluation: 16:49 - Subjective Subjective: Since we dc the iv steroid the patient condition worse more sob, severe on exertion. Will restart in steroid and will follow clinically. Objective - Vital Signs/Intake and Output Vital Signs (last 24 hours): Temp Pulse Resp BP Pulse Ox 98.4 F 71 20 139/69 95 03/26/18 08:07 03/26/18 08:07 03/26/18 08:07 03/26/18 08:07 03/26/18 08:07 Intake and Output: 03/26/18 03/26/18 11:59 23:59 Intake Total 300 730 Balance 300 730 - Medications Medications: Current Medications Acetylcysteine (Acetylcysteine 20%) 4 ml INH Q6H [facility] Last Admin: 03/26/18 08:35 Dose: Not Given Amlodipine Besylate (Norvasc) 5 mg PO DAILY [facility] Last Admin: 03/26/18 10:07 Dose: 5 mg Aspirin (Ecotrin) 81 mg PO DAILY [facility] Last Admin: 03/26/18 10:07 Dose: 81 mg Budesonide (Pulmicort Respules) 0.5 mg INH RQ12 [facility] Last Admin: 03/26/18 08:36 Dose: 0.5 mg Doxycycline Hyclate (Doryx) 100 mg PO Q12H [facility] PRN Reason: Protocol Last Admin: 03/26/18 10:10 Dose: 100 mg Enoxaparin Sodium (Lovenox) 40 mg SC DAILY [facility] Last Admin: 03/26/18 10:07 Dose: 40 mg Guaifenesin (Mucinex La) 600 mg PO BID [facility] Last Admin: 03/26/18 10:07 Dose: 600 mg Azithromycin 500 mg/ Sodium (Chloride) 250 mls @ 167 mls/hr IVPB Q24H [facility] PRN Reason: Protocol Last Admin: 03/26/18 10:07 Dose: 167 mls/hr Insulin Human Regular (Novolin R) 0 unit SC ACHS [facility] PRN Reason: Protocol Last Admin: 03/26/18 16:25 Dose: Not Given Prednisone (Prednisone Tab) 20 mg PO DAILY [facility] Last Admin: 03/26/18 10:07 Dose: 20 mg Rosuvastatin Calcium (Crestor) 5 mg PO HS [facility] Last Admin: 03/25/18 21:42 Dose: 5 mg Tiotropium [place] (Spiriva) 18 mcg INH RQ24 [facility] Last Admin: 03/24/18 12:06 Dose: 18 mcg - Labs Labs: 03/26/18 13:45 03/26/18 13:45 - Constitutional Appears: Chronically Ill - Head Exam Head Exam: ATRAUMATIC, NORMAL INSPECTION, NORMOCEPHALIC - Eye Exam Eye Exam: Normal appearance - ENT Exam ENT Exam: Normal External Ear Exam - Neck Exam Neck Exam: Full ROM - Respiratory Exam Respiratory Exam: Accessory Muscle Use, Decreased Breath Sounds, Prolonged Expiratory Phase - Cardiovascular Exam Cardiovascular Exam: REGULAR RHYTHM, +S1, +S2 - GI/Abdominal Exam GI & Abdominal Exam: Soft, Normal Bowel Sounds - Extremities Exam Extremities Exam: Normal Inspection - Neurological Exam Neurological Exam: Alert, Awake, CN II-XII Intact, Oriented x3 - Psychiatric Exam Psychiatric exam: Normal Affect - Skin Skin Exam: Normal Color Assessment and Plan (1) Bronchitis Status: Acute (2) Hypertensive cardiovascular disease Status: Chronic (3) Coronary arteriosclerosis Status: Chronic (4) Tachypnea Status: Acute (5) Respiratory acidosis Assessment & Plan: As above. Status: Acute (6) Pulmonary artery hypertension Status: Suspected (7) COPD exacerbation Status: Acute (8) Emphysema lung Status: Chronic
[2018-03-26] MEDS ORDERED: MethylPREDNISolone 40 mg Vial IVP STA (16:51)
[2018-03-26 17:57] LABS: ABG ALLEN TEST POS; ARTERIAL BLOOD GAS HCO3 29.3 mmol/L (21-28); ARTERIAL BLOOD GAS HEMOGLOBIN 12.7 g/dL (11.7-17.4); ARTERIAL BLOOD GAS O2 SAT 94.9 % (95-98); ARTERIAL BLOOD GAS PCO2 44 mm/Hg (35-45); ARTERIAL BLOOD GAS PH 7.45 (7.35-7.45); ARTERIAL BLOOD GAS PO2 60 mm/Hg (80-100)
[2018-03-27] MEDS: Acetylcysteine 20% Inhal Soln (4ml) INH SCH ×2 (01:09→07:26)
[2018-03-27] MEDS: (Novolin R) Insulin Human Regular 100 units/ml vial SC SCH ×2 (08:00→11:40)
--- NOTE | 2018-03-27 09:46 | RAD ---
Date of service: 03/27/2018 HISTORY: COPD COMPARISON: 03/22/2018 TECHNIQUE: Chest PA and lateral FINDINGS: LUNGS: Pulmonary hyperinflation consistent with emphysema. No mass. No infiltrate. PLEURA: No significant pleural effusion identified. No pneumothorax apparent. CARDIOVASCULAR: CABG. Normal heart size. No congestive change. OSSEOUS STRUCTURES: No significant abnormalities. VISUALIZED UPPER ABDOMEN: Normal. OTHER FINDINGS: None. IMPRESSION: Emphysema. CABG.
[2018-03-27] MEDS ORDERED: MethylPREDNISolone 40 mg Vial IVP ONE (10:00)
[2018-03-27] MEDS: Azithromycin 500 MG in Sodium Chloride 0.9% 250 ML IVPB SCH (10:07)
[2018-03-27] MEDS: Enoxaparin 40 mg Syringe SC SCH (10:07)
[2018-03-27] MEDS: guaiFENesin 600 mg ER Tab PO SCH (10:08)
[2018-03-27 10:12] VITALS: BP 126/74; PULSE 61; TEMP 97.9
--- NOTE | 2018-03-27 13:31 | CP.PCM.PN ---
Subjective - Date & Time of Evaluation Date of Evaluation: 03/27/18 Time of Evaluation: 10:00 - Subjective Subjective: patient seen and examined breathing and cough much improved Desaturates on minimal exertion Will need home oxygen Continue p.o. prednisone Objective - Vital Signs/Intake and Output Vital Signs (last 24 hours): Temp Pulse Resp BP Pulse Ox 97.9 F 61 20 126/74 95 03/27/18 10:10 03/27/18 10:10 03/27/18 10:10 03/27/18 10:10 03/27/18 10:10 Intake and Output: 03/27/18 03/27/18 06:59 18:59 Intake Total 150 Balance 150 - Medications Medications: Current Medications Acetylcysteine (Acetylcysteine 20%) 4 ml INH Q6H [facility] Last Admin: 03/27/18 07:26 Dose: Not Given Amlodipine Besylate (Norvasc) 5 mg PO DAILY [facility] Last Admin: 03/27/18 10:08 Dose: 5 mg Aspirin (Ecotrin) 81 mg PO DAILY [facility] Last Admin: 03/27/18 10:08 Dose: 81 mg Budesonide (Pulmicort Respules) 0.5 mg INH RQ12 [facility] Last Admin: 03/26/18 21:25 Dose: 0.5 mg Enoxaparin Sodium (Lovenox) 40 mg SC DAILY [facility] Last Admin: 03/27/18 10:07 Dose: 40 mg Guaifenesin (Mucinex La) 600 mg PO BID [facility] Last Admin: 03/27/18 10:08 Dose: 600 mg Insulin Human Regular (Novolin R) [address] [facility] PRN Reason: Protocol Last Admin: 03/27/18 11:40 Dose: 2 units Rosuvastatin Calcium (Crestor) 5 mg PO HS [facility] Last Admin: 03/26/18 21:36 Dose: 5 mg Tiotropium [place] (Spiriva) 18 mcg INH RQ24 [facility] Last Admin: 03/26/18 07:27 Dose: Not Given - Labs Labs: 03/26/18 13:45 03/26/18 13:45 - Head Exam Head Exam: ATRAUMATIC, NORMOCEPHALIC - ENT Exam ENT Exam: Mucous Membranes Moist - Neck Exam Neck Exam: Normal Inspection - Respiratory Exam Respiratory Exam: Decreased Breath Sounds - Cardiovascular Exam Cardiovascular Exam: REGULAR RHYTHM - GI/Abdominal Exam GI & Abdominal Exam: Soft, Normal Bowel Sounds Assessment and Plan (1) COPD exacerbation Assessment & Plan: P.o. prednisone Nebulizer treatment Home oxygen Spiriva Followup in the office Status: Acute (2) Multiple lung nodules Status: Acute
--- NOTE | 2018-03-27 13:33 | CP.PCM.DIS ---
Provider - Provider Date of Admission: 03/20/18 14:08 Attending physician: García Hall MD Time Spent in preparation of Discharge (in minutes): 30 Diagnosis - Discharge Diagnosis (1) Bronchitis Status: Acute (2) Hypertensive cardiovascular disease Status: Chronic (3) Coronary arteriosclerosis Status: Chronic (4) Tachypnea Status: Acute (5) Respiratory acidosis Status: Acute (6) Pulmonary artery hypertension Status: Suspected (7) COPD exacerbation Status: Acute (8) Emphysema lung Status: Chronic Hospital Course - Lab Results Lab Results: Micro Results 03/18/18 13:20 Blood-Venous Blood Culture - Final NO GROWTH AFTER 5 DAYS 03/18/18 13:20 Blood-Venous Gram Stain - Final TEST NOT PERFORMED 03/18/18 23:10 Blood-Venous Blood Culture - Final NO GROWTH AFTER 5 DAYS 03/18/18 23:10 Blood-Venous Gram Stain - Final TEST NOT PERFORMED 03/21/18 20:54 Sputum Gram Stain - Final 03/21/18 20:54 Sputum Sputum Culture - Final NORMAL ORAL ALCIDES Most Recent Lab Values WBC 19.3 K/uL (4.8-10.8) H 03/26/18 13:45 RBC 5.05 Mil/uL (3.80-5.20) 03/26/18 13:45 Hgb 15.2 g/dL (11.0-16.0) 03/26/18 13:45 Hct 45.8 % (34.0-47.0) 03/26/18 13:45 MCV 90.7 fL (81.0-99.0) 03/26/18 13:45 MCH 30.1 pg (27.0-31.0) 03/26/18 13:45 MCHC 33.2 g/dL (33.0-37.0) 03/26/18 13:45 RDW 13.8 % (11.5-14.5) 03/26/18 13:45 Plt Count 297 K/uL (130-400) 03/26/18 13:45 MPV 7.6 fL (7.2-11.7) 03/26/18 13:45 Neut % (Auto) 83.7 % (50.0-75.0) H 03/26/18 13:45 Lymph % (Auto) 12.2 % (20.0-40.0) L 03/26/18 13:45 [place] % (Auto) 3.6 % (0.0-10.0) 03/26/18 13:45 Eos % (Auto) 0.2 % (0.0-4.0) 03/26/18 13:45 Baso % (Auto) 0.3 % (0.0-2.0) 03/26/18 13:45 Neut # (Auto) 16.2 K/uL (1.8-7.0) H 03/26/18 13:45 Lymph # (Auto) 2.4 K/uL (1.0-4.3) 03/26/18 13:45 [place] # (Auto) 0.7 K/uL (0.0-0.8) 03/26/18 13:45 Eos # (Auto) 0.0 K/uL (0.0-0.7) 03/26/18 13:45 Baso # (Auto) 0.1 K/uL (0.0-0.2) 03/26/18 13:45 Neutrophils % (Manual) 88 % (50-75) H 03/22/18 13:50 Lymphocytes % (Manual) 9 % (20-40) L 03/22/18 13:50 Reactive Lymphs % 1 % (0-0) H 03/22/18 13:50 Monocytes % (Manual) 2 % (0-10) 03/22/18 13:50 Platelet Estimate Normal (NORMAL) 03/22/18 13:50 RBC Morphology Normal 03/22/18 13:50 Puncture Site Rra 03/26/18 17:52 pCO2 44 mm/Hg (35-45) 03/26/18 17:52 pO2 60 mm/Hg (80-100) L 03/26/18 17:52 HCO3 29.3 mmol/L (21-28) H 03/26/18 17:52 ABG pH 7.45 (7.35-7.45) 03/26/18 17:52 ABG Total CO2 32.0 mmol/L (22-28) H 03/26/18 17:52 ABG O2 Saturation 94.9 % (95-98) L 03/26/18 17:52 ABG Base Excess 5.8 mmol/L (-2.0-3.0) H 03/26/18 17:52 ABG Hemoglobin 12.7 g/dL (11.7-17.4) 03/26/18 17:52 ABG Carboxyhemoglobin 1.8 % (0.5-1.5) H 03/26/18 17:52 POC ABG HHb (Measured) 4.9 % (0.0-5.0) 03/26/18 17:52 ABG Methemoglobin 1.6 % (0.0-3.0) 03/26/18 17:52 [place] Test Pos 03/26/18 17:52 A-a O2 Difference 66.0 mm/Hg 03/23/18 14:41 Respiratory Index 0.8 03/23/18 14:41 Hgb O2 Saturation 91.8 % (95.0-98.0) L 03/26/18 17:52 Liter Flow 2.0 03/26/18 17:52 FiO2 28.0 % 03/23/18 14:41 Sodium 138 mmol/L (132-148) 03/26/18 13:45 Potassium 4.2 mmol/L (3.6-5.2) 03/26/18 13:45 Chloride 97 mmol/L (98-107) L 03/26/18 13:45 Carbon Dioxide 33 mmol/L (22-30) H 03/26/18 13:45 Anion Gap 12 (10-20) 03/26/18 13:45 BUN 24 mg/dL (7-17) H 03/26/18 13:45 Creatinine 0.7 mg/dL (0.7-1.2) 03/26/18 13:45 Est GFR ( Amer) > 60 03/26/18 13:45 Est GFR (Non-Af Amer) > 60 03/26/18 13:45 POC Glucose (mg/dL) 246 mg/dL (65-110) H 03/27/18 11:24 Random Glucose 148 mg/dL (65-105) H 03/26/18 13:45 Lactic Acid 1.3 mmol/L (0.7-2.1) 03/20/18 08:46 Calcium 8.2 mg/dl (8.6-10.4) L 03/26/18 13:45 Total Bilirubin 0.4 mg/dL (0.2-1.3) 03/18/18 14:52 AST 27 U/L (14-36) 03/18/18 14:52 ALT 29 U/L (9-52) 03/18/18 14:52 Alkaline Phosphatase 112 U/L (38-126) 03/18/18 14:52 Troponin I < 0.0120 ng/mL (0.00-0.120) 03/19/18 13:55 NT-Pro-B Natriuret Pep 332 pg/mL (0-900) 03/19/18 13:55 Total Protein 8.0 g/dL (6.3-8.3) 03/18/18 14:52 Albumin 4.4 g/dL (3.5-5.0) 03/18/18 14:52 Globulin 3.6 gm/dL (2.2-3.9) 03/18/18 14:52 Albumin/Globulin Ratio 1.2 (1.0-2.1) 03/18/18 14:52 Thyroxine (T4) 8.05 ug/dL (5.5-11.0) 03/19/18 17:05 Total T3 1.06 nmol/L (1.49-2.60) L 03/19/18 17:05 TSH 3rd Generation 0.30 mIU/L (0.46-4.68) L 03/19/18 13:55 Urine Color Yellow (YELLOW) 03/19/18 07:04 Urine Clarity Clear (Clear) 03/19/18 07:04 Urine pH 6.0 (5.0-8.0) 03/19/18 07:04 Ur Specific [place] 1.039 (1.003-1.030) H 03/19/18 07:04 Urine Protein Negative mg/dL (NEGATIVE) 03/19/18 07:04 Urine Glucose (UA) Normal mg/dL (Normal) 03/19/18 07:04 Urine Ketones Negative mg/dL (NEGATIVE) 03/19/18 07:04 Urine Blood Negative (NEGATIVE) 03/19/18 07:04 Urine Nitrate Negative (NEGATIVE) 03/19/18 07:04 Urine Bilirubin Negative (NEGATIVE) 03/19/18 07:04 Urine Urobilinogen Normal mg/dL (0.2-1.0) 03/19/18 07:04 Ur Leukocyte Esterase Neg Jorge/uL (Negative) 03/19/18 07:04 Urine WBC (Auto) < 1 /hpf (0-5) 03/19/18 07:04 Urine RBC (Auto) 1 /hpf (0-3) 03/19/18 07:04 Ur Squamous Epith Cells 5 /hpf (0-5) 03/19/18 07:04 Urine Bacteria Rare (<OCC) 03/19/18 07:04 Mycoplasma pneumon IgG 1.45 (<=0.90) H 03/18/18 21:15 Mycoplasma pneumon IgM 326 U/mL (<770) 03/18/18 21:15 - Hospital Course Hospital Course: 73 y/o lady with hx of cigarettes smoking, CAD, S/P CABG x 4, HTN, severe COPD. She presented in ER with progressive dyspnea, cough, general weakness, severe tachypnea. She was seen in my office few days before admission and she did not improve on the bronchodilators and anti bx meds. At the present time poorly respond to steroid rx iv. Patent was respiratory acidosis. A CT scan reveled a suspicious 6 mm nodule. Patient still heavy smoker. Patient was placed on iv steroid and antibx. She improved slowly. Today comfortable not in distress. Case discussed with adoption specialist. He agrees with dc home will follow close. Discharge Exam - Head Exam Head Exam: ATRAUMATIC, NORMAL INSPECTION, NORMOCEPHALIC - Eye Exam Eye Exam: Normal appearance - ENT Exam ENT Exam: Normal External Ear Exam - Respiratory Exam Respiratory Exam: Clear to PA & Lateral - Cardiovascular Exam Cardiovascular Exam: REGULAR RHYTHM, +S1, +S2 - GI/Abdominal Exam GI & Abdominal Exam: Normal Bowel Sounds - Extremities Exam Extremities exam: normal inspection - Neurological Exam Neurological exam: Alert, CN II-XII Intact, Oriented x3 Discharge Plan - Discharge Medications Prescriptions: Methylprednisolone [Medrol Dose Pack (21 tabs)] 4 mg PO ASDIR #21 mg - Follow Up Plan Condition: FAIR Disposition: HOME/ ROUTINE Instructions: Atherosclerosis, Exacerbation of COPD (DC), Pulmonary Hypertension, Adult (DC), Multiple Pulmonary Nodules Referrals: Corey Riley MD [Staff Provider] - García Hall MD [Staff Provider] -
== END 2018-03-27 16:52 | disposition home or self-care (01) | DRG 191 ==
LOC: C.ER 13:53 → C.9E 19:07 → C.5S 03-19 08:43 → OBSVTOIN 03-20 14:08 → C.3T 03-21 20:40
PROVIDERS: ADMIT Internal Medicine; ATTEND Internal Medicine
DX: J44.1 Chronic obstructive pulmonary disease with (acute) exacerbation (principal); E87.2 Acidosis; R09.02 Hypoxemia; I25.10 Atherosclerotic heart disease of native coronary artery without angina pectoris; I11.9 Hypertensive heart disease without heart failure; R91.8 Other nonspecific abnormal finding of lung field; I27.21 Secondary pulmonary arterial hypertension; F17.200 Nicotine dependence, unspecified, uncomplicated; Z87.01 Personal history of pneumonia (recurrent); Z95.1 Presence of aortocoronary bypass graft

== ENCOUNTER 2018-12-26 11:07 | Outpatient (CLI) | payer BC | END 2018-12-26 11:08 | disposition home or self-care (01) | LOC: C.CTH 11:07 | DX: R91.1 Solitary pulmonary nodule (principal); K44.9 Diaphragmatic hernia without obstruction or gangrene ==